=== PATIENT | female | born 1995 | race Caucasian/White ===

== ENCOUNTER 2016-05-13 06:22 | Emergency (ER) | payer MEDICAID, OTHER ==
[2016-05-13] MEDS ORDERED: METHYLPREDNISOLONE INJ 125 MG/2 ML SDV IV ONE (06:24)
[2016-05-13] MEDS ORDERED: LORAZEPAM INJ 2 MG/1 ML VIAL IV ONE (06:24)
[2016-05-13] MEDS ORDERED: DIPHENHYDRAMINE HCL 50 MG/ML VIAL IV ONE (06:24)
[2016-05-13] MEDS ORDERED: FAMOTIDINE INJ/PF 20 MG/2 ML SDV IV ONE (06:24)
--- NOTE | 2016-05-13 06:29 | ER Document Report ---
ED General - General Stated Complaint: POSSIBLE ALLERGIC REACTION Mode of Arrival: Wheelchair Information source: Patient, Relative Notes: 21-year-old female history of tree nut allergies presents after eating a pecan. Pt notes sob, brought in by relative. pt notes she took her epi pen prior to arrival TRAVEL OUTSIDE OF THE [place] IN LAST 30 DAYS: No - HPI Onset: Just prior to arrival Onset/Duration: Sudden Quality of pain: No pain Severity: Mild Pain Level: Denies Associated symptoms: Other Exacerbated by: Denies Relieved by: Denies Similar symptoms previously: No Recently seen / treated by doctor: No - Related Data Allergies/Adverse Reactions: tree nut Allergy (Verified 03/29/16 11:44) Past Medical History - Social History Smoking Status: Never Smoker Cigarette use (# per day): No Chew tobacco use (# tins/day): No Smoking Education Provided: No Family History: None Pulmonary Medical History: Reports: Hx Asthma - Immunizations Hx Diphtheria, Pertussis, Tetanus Vaccination: Yes Review of Systems - Review of Systems Notes: REVIEW OF SYSTEMS: CONSTITUTIONAL : Denies fever, chills, or sweats. Denies recent illness. EENT: Denies eye, ear, throat, or mouth pain or symptoms. Denies nasal or sinus congestion or discharge. Denies throat, tongue, or mouth swelling or difficulty swallowing. CARDIOVASCULAR: Denies chest pain. Denies palpitations or racing or irregular heart beat. Denies ankle edema. RESPIRATORY: Admits shortness of breath GASTROINTESTINAL: Denies abdominal pain or distention. Denies nausea, vomiting , or diarrhea. Denies blood in vomitus, stools, or per rectum. Denies black, tarry stools. Denies constipation. GENITOURINARY: Denies difficulty urinating, painful urination, burning, frequency, blood in urine, or discharge. FEMALE GENITOURINARY: Denies vaginal bleeding, heavy or abnormal periods, irregular periods. Denies vaginal discharge or odor. MUSCULOSKELETAL: Denies back or neck pain or stiffness. Denies joint pain or swelling. SKIN: Denies rash, lesions or sores. HEMATOLOGIC : Denies easy bruising or bleeding. LYMPHATIC: Denies swollen, enlarged glands. NEUROLOGICAL: Denies confusion or altered mental status. Denies passing out or loss of consciousness. Denies dizziness or lightheadedness. Denies headache. Denies weakness or paralysis or loss of use of either side. Denies problems with gait or speech. Denies sensory loss, numbness, or tingling. Denies seizures. PSYCHIATRIC: Denies anxiety or stress. Denies depression, suicidal ideation, or homicidal ideation. ALL OTHER SYSTEMS REVIEWED AND NEGATIVE. Dictation was performed using [employer] voice recognition software PHYSICAL EXAMINATION: GENERAL: Well-appearing, well-nourished and in no acute distress. HEAD: Atraumatic, normocephalic. EYES: Pupils equal round and reactive to light, extraocular movements intact, conjunctiva are normal. ENT: Nares patent, oropharynx clear without exudates. Moist mucous membranes. NECK: Normal range of motion, supple without lymphadenopathy LUNGS: Breath sounds clear to auscultation bilaterally and equal. No wheezes rales or rhonchi. HEART: Regular rate and rhythm without murmurs ABDOMEN: Soft, nontender, nondistended abdomen. No guarding, no rebound. No masses appreciated. Female : deferred Musculoskeletal: Normal range of motion, no pitting or edema. No cyanosis. NEUROLOGICAL: Cranial nerves grossly intact. Normal speech, normal gait. Normal sensory, motor exams PSYCH: Normal mood, normal affect. SKIN: Warm, Dry, normal turgor, no rashes or lesions noted. Physical Exam - Vital signs Vitals: Pulse Ox 94 05/13/16 06:25 Course - Re-evaluation Re-evalutation: 05/13/16 06:28 Tongue is not swollen airways patent, patient will be treated with Benadryl and Pepcid and Solu-Medrol. It appears patient did take her own EpiPen at home, I will watch her for rebound symptoms 05/13/16 07:51 In fact it appears never gave her the EpiPen injection, patient was mistaken, he confirms EpiPen is intact and in her pocket. Patient satting 100% she is in no distress I will discharge her home at this time After performing a Medical Screening Examination, I estimate there is LOW risk for AIRWAY COMPROMISE, ANAPHYLAXIS, CELLULITIS, EPIGLOTTIS, or NECROTIZING FASCIITIS, thus I consider the discharge disposition reasonable. Also, there is no evidence or peritonitis, sepsis, or toxicity. The patient and I have discussed the diagnosis and risks, and we agree with discharging home with close follow-up with the understanding that symptoms and presentations can change. We also discussed returning to the Emergency Department immediately if new or worsening symptoms occur. We have discussed the symptoms which are most concerning (e.g., difficulty breathing or swallowing, fever, changing or worsening pain) that necessitate immediate return. - Vital Signs Vital signs: Temp Pulse Resp BP Pulse Ox 98.1 F 19 91/48 L 100 05/13/16 07:40 05/13/16 07:40 05/13/16 07:40 05/13/16 07:20 Discharge - Discharge Clinical Impression: Acute allergic reaction Qualifiers: Encounter type: initial encounter Qualified Code(s): T78.40XA - Allergy, unspecified, initial encounter Condition: Stable Disposition: HOME, SELF-CARE Instructions: Acute Allergic Reaction ([facility]) Additional Instructions: Follow up with your physician tomorrow for further care or return to the ED IMMEDIATELY if symptoms worsen or new concerns occur Prescriptions: Diphenhydramine HCl [Benadryl 50 mg Capsule] 1 cap PO Q6 PRN #20 capsule PRN Reason: Famotidine [Pepcid 20 mg Tablet] 20 mg PO DAILY #5 tablet Prednisone 60 mg PO DAILY 5 Days
[2016-05-13 08:08] VITALS: BP 94/50
== END 2016-05-13 08:30 | disposition home or self-care (01) ==
LOC: ER 06:22
DX: T78.1XXA Other adverse food reactions, not elsewhere classified, initial encounter (principal); R06.02 Shortness of breath; X58.XXXA Exposure to other specified factors, initial encounter; J45.909 Unspecified asthma, uncomplicated
CPT/HCPCS: 99283; 96374; 96375; J1200; J2930; J2060; S0028

== ENCOUNTER 2016-09-13 01:05 | Emergency (ER) | payer OTHER ==
[2016-09-13 03:02] LABS: ABSOLUTE EOSINOPHILS # (AUTO) 0.1 10^3/uL (0.0-0.6); ABSOLUTE LYMPHOCYTES (AUTO) 2.9 10^3/uL (0.5-4.7); ABSOLUTE MONOCYTES (AUTO) 0.7 10^3/uL (0.1-1.4); ABSOLUTE NEUT (AUTO) 3.8 10^3/uL (1.7-8.2); BASOPHILS % (AUTO) 0.3 % (0-2); EOSINOPHILS % (AUTO) 1.9 % (0-6); HEMATOCRIT 38.4 % (36.0-47.0); HEMOGLOBIN 12.7 g/dL (12.0-15.5); HGB HCT DIFFERENCE -0.3; LYMPHOCYTES % (AUTO) 38.2 % (13-45); MEAN CORPUSCULAR HEMOGLOBIN 31.7 pg (27.0-33.4); MEAN CORPUSCULAR VOLUME 96 fl (80-97); MONOCYTES % (AUTO) 9.5 % (3-13); RED CELL DISTRIBUTION WIDTH 15.1 % (11.5-14.0); SEGMENTED NEUTROPHILS % (AUTO) 50.1 % (42-78); WHITE BLOOD COUNT 7.6 10^3/uL (4.0-10.5)
[2016-09-13 03:04] LABS: ALANINE AMINOTRANSFERASE 34 U/L (9-52); ALBUMIN 4.8 g/dL (3.5-5.0); ALKALINE PHOSPHATASE 65 U/L (38-126); ANION GAP 13 (5-19); ASPARTATE AMINO TRANSFERASE 30 U/L (14-36); BILIRUBIN,DIRECT 0.3 mg/dL (0.0-0.4); BILIRUBIN,TOTAL 0.4 mg/dL (0.2-1.3); BLOOD UREA NITROGEN 13 mg/dL (7-20); CALCIUM 9.9 mg/dL (8.4-10.2); CARBON DIOXIDE 25 mmol/L (22-30); CHLORIDE 104 mmol/L (98-107); CREATINE KINASE 127 U/L (30-135); CREATININE RESULT 0.63 mg/dL (0.52-1.25); GLUCOSE 78 mg/dL (75-110); POTASSIUM 3.9 mmol/L (3.6-5.0); SODIUM 142.3 mmol/L (137-145); TOTAL PROTEIN 8.3 g/dL (6.3-8.2)
[2016-09-13 03:19] LABS: CREATINE KINASE MB 0.73 ng/mL (<4.55)
[2016-09-13 03:29] LABS: TROPONIN I < 0.012 ng/mL
--- NOTE | 2016-09-13 05:50 | RADIOLOGY REPORT (SQ) ---
EXAM DESCRIPTION: CT HEAD WITHOUT COMPLETED DATE/TIME: 09/13/2016 5:31 am REASON FOR STUDY: syncope, falls, ovarian CA COMPARISON: None. TECHNIQUE: Axial images acquired through the brain without intravenous contrast. Images reviewed wi th bone, brain and subdural windows. Images stored on PACS. All CT scanners at this facility use dose modulation, iterative reconstruction, and/or weight based d osing when appropriate to reduce radiation dose to as low as reasonably achievable (ALARA). [facility]: Dose Right [facility]: CareDose [facility]: Dose Right [facility]: Teradose 4D [facility]: HeyBubble RADIATION DOSE: 64.61 mGy. LIMITATIONS: None. FINDINGS: VENTRICLES: Normal size and contour. CEREBRUM: No masses. No hemorrhage. No midline shift. Normal kennedy/white matter differentiation. N o evidence for acute infarction. CEREBELLUM: No masses. No hemorrhage. No alteration of density. No evidence for acute infarction. EXTRAAXIAL SPACES: No fluid collections. No masses. ORBITS AND GLOBE: No intra- or extraconal masses. Normal contour of globe without masses. CALVARIUM: No fracture. PARANASAL SINUSES: No fluid or mucosal thickening. SOFT TISSUES: No mass or hematoma. OTHER: No other significant finding. IMPRESSION: NORMAL BRAIN CT WITHOUT CONTRAST. TECHNICAL DOCUMENTATION: JOB ID: [id number] Quality ID # [id number]: Final reports with documentation of one or more dose reduction techniques (e.g., Au tomated exposure control, adjustment of the mA and/or kV according to patient size, use of iterative reconstruction technique) 2010 [email or web address] All Rights Reserved
[2016-09-13 06:30] LABS: APPEARANCE,URINE CLEAR; BILIRUBIN,URINE NEGATIVE (NEGATIVE); GLUCOSE, URINE NEGATIVE (NEGATIVE); KETONES,URINE NEGATIVE (NEGATIVE); LEUKOCYTE ESTERASE,URINE TRACE (NEGATIVE); NITRITE,URINE NEGATIVE (NEGATIVE); PROTEIN,URINE NEGATIVE (NEGATIVE); URINE SPECIFIC GRAVITY 1.015; UROBILINOGEN,URINE NEGATIVE mg/dL (<2.0)
[2016-09-13] MEDS ORDERED: ONDANSETRON 4 MG TAB.RAPDIS PO ONE (06:31)
[2016-09-13] MEDS ORDERED: PROCHLORPERAZINE MALEATE 10 MG TABLET PO ONE (06:31)
[2016-09-13 07:05] VITALS: BP 86/59
--- NOTE | 2016-09-13 07:15 | ER Document Report ---
ED General - General Chief Complaint: Syncope Stated Complaint: DIZZY Time Seen by Provider: 09/13/16 06:24 TRAVEL OUTSIDE OF THE [place] IN LAST 30 DAYS: No - HPI Patient complains to provider of: Headache dizziness passing out Notes: Patient is coming in for evaluation of headaches passing out and dizziness. Patient states multiple syncopal episodes or passing out episodes and the weeks prior to this visit. Patient states she has had numerous workup [facility] involving "multiple test" with no results to give a definitive answer to her symptoms. Patient states today symptoms are the same dizziness is also the same. Patient also states headache at the same. Patient upon my evaluation sleeping easily arousable asking me to speak softly. - Related Data Allergies/Adverse Reactions: tree nut Allergy (Verified 03/29/16 11:44) Past Medical History - Social History Smoking Status: Unknown if Ever Smoked Family History: None Pulmonary Medical History: Reports: Hx Asthma Renal/ Medical History: Denies: Hx Peritoneal Dialysis - Immunizations Hx Diphtheria, Pertussis, Tetanus Vaccination: Yes Review of Systems - Review of Systems Constitutional: No symptoms reported EENT: No symptoms reported Cardiovascular: Dizziness, Other - passout headache Respiratory: No symptoms reported Gastrointestinal: No symptoms reported Genitourinary: No symptoms reported Female Genitourinary: No symptoms reported Musculoskeletal: No symptoms reported Skin: No symptoms reported Hematologic/Lymphatic: No symptoms reported Neurological/Psychological: No symptoms reported -: Yes All other systems reviewed and negative Physical Exam - Vital signs Vitals: Temp Pulse BP Pulse Ox 98.6 F 66 114/62 100 09/13/16 01:13 09/13/16 01:13 09/13/16 01:13 09/13/16 01:13 Interpretation: Normal - General General appearance: Appears well, Alert - HEENT Head: Normocephalic, Atraumatic Eyes: Normal Pupils: PERRL - Respiratory Respiratory status: No respiratory distress Chest status: Nontender Breath sounds: Normal Chest palpation: Normal - Cardiovascular Rhythm: Regular Heart sounds: Normal auscultation Murmur: No - Abdominal Inspection: Normal Distension: No distension Bowel sounds: Normal Tenderness: Nontender Organomegaly: No organomegaly - Back Back: Normal, Nontender - Extremities General upper extremity: Normal inspection, Nontender, Normal color, Normal ROM , Normal temperature General lower extremity: Normal inspection, Nontender, Normal color, Normal ROM , Normal temperature, Normal weight bearing. No: Bethany's sign - Neurological Neuro grossly intact: Yes Cognition: Normal Orientation: AAOx4 Agustin Coma Scale Eye Opening: Spontaneous [place] Coma Scale Verbal: Oriented [place] Coma Scale Motor: Obeys Commands [place] Coma Scale Total: 15 Speech: Normal Motor strength normal: LUE, RUE, LLE, RLE Sensory: Normal - Psychological Associated symptoms: Normal affect, Normal mood - Skin Skin Temperature: Warm Skin Moisture: Dry Skin Color: Normal Course - Re-evaluation Re-evalutation: 09/13/16 13:40 Patient coming in for evaluation headache passing out and dizziness. Patient lab work did not reveal any critical pathology. Patient neurologically intact with no significant pathology seen on physical examination. Patient will be discharged home follow-up with cardiology neurology and PCP. Patient will be given Compazine and Zofran for her headaches. 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 The patient is neurologically intact. Given the extremely low risk of these diagnoses further testing and evaluation for these possibilities does not appear to be indicated at this time. The patient has been instructed to return if the symptoms worsen or change in any way.. - Vital Signs Vital signs: Temp Pulse Resp BP Pulse Ox 98.6 F 81 86/59 L 100 09/13/16 01:13 09/13/16 07:04 09/13/16 07:04 09/13/16 01:13 - Laboratory Result Diagrams: 09/13/16 02:33 09/13/16 02:33 Laboratory results interpreted by me: 09/13/16 09/13/16 09/13/16 02:33 02:33 02:33 RDW 15.1 H Total Protein 8.3 H Ur Leukocyte Esterase TRACE H Discharge - Discharge Clinical Impression: Blackout spell Headache Qualifiers: Headache type: unspecified Headache chronicity pattern: unspecified pattern Intractability: not intractable Qualified Code(s): R51 - Headache Condition: Good Disposition: HOME, SELF-CARE Instructions: Dizziness ([facility]), Headache ([facility]), Family Physicians / Practices Additional Instructions: Your laboratory studies today do not show any critical etiology for your symptoms. I would highly recommend that you continue to drink plenty water to stay hydrated. you may take the 2 medications prescribed for your headaches. Highly recommend she follow-up with her family physician neurologist and buncher machine. These physicians will be listed for you. Prescriptions: Ondansetron [Zofran Odt 4 mg Tablet] 4 mg PO Q6 #20 tab.rapdis Prochlorperazine Maleate [Compazine] 10 mg PO Q6 #20 tablet Forms: Return to Work Referrals: MARGE WSET MD [ACTIVE STAFF] - Follow up as needed NERISSA HAMMONDS MD [ACTIVE STAFF] - Follow up as needed
--- NOTE | 2016-09-13 14:28 | EKG REPORT ---
SEVERITY:- OTHERWISE NORMAL ECG - SINUS ARRHYTHMIA, RATE 61-85 : Confirmed by: Yanet Sahu 13-Sep-2016 14:27:57
--- NOTE | 2016-09-13 14:28 | EKG REPORT ---
SEVERITY:- OTHERWISE NORMAL ECG - SINUS ARRHYTHMIA, RATE 44-60 : Confirmed by: Yanet Sahu 13-Sep-2016 14:27:52
== END 2016-09-13 07:41 | disposition home or self-care (01) ==
LOC: ER 01:05
DX: R55 Syncope and collapse (principal); R51 Headache; J45.909 Unspecified asthma, uncomplicated; Z91.018 Allergy to other foods
CPT/HCPCS: 93005; 99284; 36415; 82553; 82550; 85025; 81025; 80053; 81001; 84484; 70450; 93010; S0119; S0183

== ENCOUNTER 2017-08-20 18:37 | Emergency (ER) | payer OTHER ==
--- NOTE | 2017-08-20 20:42 | ER Document Report ---
HPI - HPI Pain Level: 0 Notes: Patient is a 22-year-old female with a history of allergic reactions who presents to the ED complaining of lip tingling and swelling since trying a new lipstick today. Patient states that she took lipstick off and has been feeling much better as well as with the aid of Benadryl. Patient states that she left work early so she needs a work note. Patient states that she does not need any other medicines at this time. She is eating and drinking without difficulties. She is urinating normally and having normal bowel movements. She has not had any trouble breathing. Denies any headache, fever, head injury, neck pain, changes in vision/speech/mentation/hearing, URI, sore throat, chest pain, palpitations, syncope, cough, shortness of breath, wheeze, dyspnea, abdominal pain, nausea/vomiting/diarrhea, urinary retention, dysuria, hematuria, loss of control of bowel or bladder, muscle paralysis/weakness, or rash. - ROS Systems Reviewed and Negative: Yes All other systems reviewed and negative Past Medical History - Social History Smoking Status: Current Every Day Smoker Chew tobacco use (# tins/day): No Family History: None Patient has suicidal ideation: No Patient has homicidal ideation: No Pulmonary Medical History: Reports: Hx Asthma Renal/ Medical History: Denies: Hx Peritoneal Dialysis - Immunizations Hx Diphtheria, Pertussis, Tetanus Vaccination: Yes Vertical Provider Document - CONSTITUTIONAL Agree With Documented VS: Yes Notes: PHYSICAL EXAMINATION: GENERAL: Well-appearing, well-nourished and in no acute distress. A&Ox4. Answers questions appropriately. Moves comfortably w/o notable distress HEAD: Atraumatic, normocephalic. EYES: Pupils equal round and reactive to light, extraocular movements intact, sclera anicteric, conjunctiva are normal. ENT: EAC clear b/l. TM's intact b/l without erythema, fluid, or perforation. Nares patent and without discharge. oropharynx w/o erythema without exudates. No tonsilar hypertrophy without erythema or exudate. No palatine shift. Uvula midline. No tongue protrusion. No drooling, hoarseness, or airway compromise. Moist mucous membranes. No sinus tenderness. No angioedema. NECK: Normal range of motion, supple without lymphadenopathy. No rigidity/ meningismus. LUNGS: Breath sounds clear to auscultation bilaterally and equal. No wheezes rales or rhonchi. No retractions HEART: Regular rate and rhythm without murmurs, rubs, gallops. NEUROLOGICAL: Normal speech, normal gait. Normal sensory, motor exams PSYCH: Normal mood, normal affect. SKIN: Warm, Dry, normal turgor, no rashes or lesions noted. - INFECTION CONTROL TRAVEL OUTSIDE OF THE [place] IN LAST 30 DAYS: No Course - Re-evaluation Re-evalutation: 08/20/17 20:40 Patient is an afebrile, well-hydrated, 22-year-old female who presents to the ED with a worried well visit for previous allergic reaction that has since resolved. Vitals are acceptable. PE is otherwise unremarkable. Patient is tolerating p.o. without difficulties. She has no significant tachycardia, tachypnea, or hypoxia. No labs or imaging warranted at this time based on H&P. Low suspicion for any meningitis, sepsis, peritonsillar/pharyngeal abscess, respiratory/airway compromise, Tomas's, angioedema, or other emergent systemic condition at this time. Patient is aware this condition can change from initial presentation and she needs to monitor symptoms closely. I will send her home with a steroid tapering doses precautionary if symptoms should worsen after she leaves from here. Conservative measures otherwise for symptoms. Recheck with your PCM in 2-3 days. Return to the ED with any worsening/ concerning symptoms otherwise as reviewed in discharge. Patient is in agreement. Discharge - Discharge Clinical Impression: Worried well Allergic reaction Qualifiers: Encounter type: initial encounter Qualified Code(s): T78.40XA - Allergy, unspecified, initial encounter Condition: Stable Disposition: HOME, SELF-CARE Additional Instructions: Rest, Ice Benadryl/Pepcid as needed Avoid allergen triggers F/u with your PCP in 2-3 days for a recheck Consider consult(s) with an caramel maker for ongoing/worsening symptoms Return to the ED with any worsening symptoms and/or development of fever, headache, changes in behavior/mentation/vision/speech, chest pain, palpitations , syncope, shortness of breath, trouble breathing, abdominal pain, n/v/d, blood in stool/urine, loss of control of bowel/bladder, urinary retention, muscle weakness/paralysis, saddle anesthesia, numbness/tingling, or other worsening symptoms that are concerning to you. Prescriptions: Prednisone [Deltasone 10 mg Tablet] 1 tab PO ASDIR PRN #18 tablet PRN Reason: Forms: Return to Work Referrals: EARNEST LYNN MD [ACTIVE STAFF] - Follow up as needed
== END 2017-08-20 20:52 | disposition home or self-care (01) ==
LOC: ER 18:37
DX: T78.40XA Allergy, unspecified, initial encounter (principal); R20.0 Anesthesia of skin; R22.0 Localized swelling, mass and lump, head; F17.200 Nicotine dependence, unspecified, uncomplicated
CPT/HCPCS: 99283

== ENCOUNTER 2018-06-21 14:17 | Emergency (ER) | payer SELFPAY ==
--- NOTE | 2018-06-21 15:59 | ER Document Report ---
ED Medical Screen (RME) - General Chief Complaint: Vag Bleeding, +preg <12wks Stated Complaint: NAUSEA Time Seen by Provider: 06/21/18 15:58 TRAVEL OUTSIDE OF THE [place] IN LAST 30 DAYS: No - HPI Notes: 06/21/18 15:58 Patient complains of sudden onset of lower abdominal cramping associated with vaginal bleed which started while she was at work this morning. She is starting weeks . She also complains of nausea and vomiting. - Related Data Allergies/Adverse Reactions: mushroom Allergy (Verified 06/21/18 15:49) Anaphylaxis tree nut Allergy (Verified 06/21/18 14:19) diphenhydramine [From Benadryl] Adverse Reaction (Verified 06/21/18 15:49) severe itching peach Adverse Reaction (Verified 06/21/18 15:49) seafood Allergy (Uncoded 06/21/18 15:49) Anaphylaxis Past Medical History - General Last Menstrual Period: unknown - Social History Chew tobacco use (# tins/day): No Frequency of alcohol use: None Drug Abuse: None Pulmonary Medical History: Reports: Hx Asthma Renal/ Medical History: Denies: Hx Peritoneal Dialysis Psychiatric Medical History: Reports: Hx Depression - anxiety Past Surgical History: Reports: Hx Oral Surgery - wisdom - Immunizations Hx Diphtheria, Pertussis, Tetanus Vaccination: Yes Physical Exam - Vital signs Vitals: Temp Pulse Resp BP Pulse Ox 98.4 F 76 19 111/51 L 100 06/21/18 14:43 06/21/18 14:43 06/21/18 14:43 06/21/18 14:43 06/21/18 14:43 Course - Vital Signs Vital signs: Temp Pulse Resp BP Pulse Ox 98.4 F 76 19 111/51 L 100 06/21/18 14:43 06/21/18 14:43 06/21/18 14:43 06/21/18 14:43 06/21/18 14:43
[2018-06-21] MEDS ORDERED: NORMAL SALINE 1000 ML 1,000 ML IV ONE ×2 (16:01→17:47)
[2018-06-21 16:32] LABS: APPEARANCE,URINE CLEAR; BILIRUBIN,URINE NEGATIVE (NEGATIVE); COLOR,URINE YELLOW; GLUCOSE, URINE NEGATIVE (NEGATIVE); KETONES,URINE TRACE mg/dL (NEGATIVE); LEUKOCYTE ESTERASE,URINE NEGATIVE (NEGATIVE); NITRITE,URINE NEGATIVE (NEGATIVE); PROTEIN,URINE NEGATIVE (NEGATIVE); URINE SPECIFIC GRAVITY 1.016; UROBILINOGEN,URINE NEGATIVE mg/dL (<2.0)
[2018-06-21 16:57] LABS: ABSOLUTE LYMPHOCYTES (AUTO) 1.2 10^3/uL (0.5-4.7); ABSOLUTE MONOCYTES (AUTO) 0.4 10^3/uL (0.1-1.4); ABSOLUTE NEUT (AUTO) 4.7 10^3/uL (1.7-8.2); BASOPHILS % (AUTO) 0.3 % (0-2); EOSINOPHILS % (AUTO) 0.6 % (0-6); HEMATOCRIT 36.7 % (36.0-47.0); LYMPHOCYTES % (AUTO) 18.5 % (13-45); MEAN CORPUSCULAR HEMOGLOBIN 33.9 pg (27.0-33.4); MEAN CORPUSCULAR HGB CONC 35.5 g/dL (32.0-36.0); MEAN CORPUSCULAR VOLUME 96 fl (80-97); MONOCYTES % (AUTO) 6.2 % (3-13); PLATELET COUNT 146 10^3/uL (150-450); RED BLOOD COUNT 3.84 10^6/uL (3.72-5.28); RED CELL DISTRIBUTION WIDTH 13.5 % (11.5-14.0); SEGMENTED NEUTROPHILS % (AUTO) 74.4 % (42-78); TOTAL CELLS COUNTED % (AUTO) 100 %; WHITE BLOOD COUNT 6.3 10^3/uL (4.0-10.5)
[2018-06-21 17:12] LABS: ALANINE AMINOTRANSFERASE 23 U/L (9-52); ALKALINE PHOSPHATASE 58 U/L (38-126); ANION GAP 7 (5-19); ASPARTATE AMINO TRANSFERASE 24 U/L (14-36); BILIRUBIN,DIRECT 0.1 mg/dL (0.0-0.4); BILIRUBIN,TOTAL 0.4 mg/dL (0.2-1.3); BLOOD UREA NITROGEN 6 mg/dL (7-20); CALCIUM 9.3 mg/dL (8.4-10.2); CARBON DIOXIDE 24 mmol/L (22-30); CHLORIDE 103 mmol/L (98-107); GLUCOSE 78 mg/dL (75-110); POTASSIUM 3.6 mmol/L (3.6-5.0); SODIUM 134.2 mmol/L (137-145)
--- NOTE | 2018-06-21 17:53 | ER Document Report ---
ED General - General Chief Complaint: Vag Bleeding, +preg <12wks Stated Complaint: NAUSEA Time Seen by Provider: 06/21/18 15:58 TRAVEL OUTSIDE OF THE [place] IN LAST 30 DAYS: No - HPI Notes: Patient is a approximately 13 weeks with 3 previous miscarriages who presents to the emergency department complaining of vaginal spotting that began today. Patient states that she has had nausea, vomiting, and some loose stool over the last several days as well. Patient states that she has been eati ng and drinking, but does have a decreased p.o. intake because of the nausea vomiting. She is urinating normally and having normal bowel movements. No other vaginal discharge or odor. She has no concern of STD or STI. No other concerns or complaints. Denies any headache, fever, neck pain, URI, sore throat, chest pain, palpitations, syncope, cough, shortness of breath, wheeze, dyspnea, abdominal pain, urinary retention, dysuria, hematuria, back pain, or rash. - Related Data Allergies/Adverse Reactions: mushroom Allergy (Verified 06/21/18 15:49) Anaphylaxis tree nut Allergy (Verified 06/21/18 14:19) diphenhydramine [From Benadryl] Adverse Reaction (Verified 06/21/18 15:49) severe itching peach Adverse Reaction (Verified 06/21/18 15:49) seafood Allergy (Uncoded 06/21/18 15:49) Anaphylaxis Past Medical History - General Last Menstrual Period: unknown - Social History Smoking Status: Never Smoker Chew tobacco use (# tins/day): No Frequency of alcohol use: None Drug Abuse: None Family History: None Patient has suicidal ideation: No Patient has homicidal ideation: No Pulmonary Medical History: Reports: Hx Asthma Renal/ Medical History: Denies: Hx Peritoneal Dialysis Psychiatric Medical History: Reports: Hx Depression - anxiety Past Surgical History: Reports: Hx Oral Surgery - wisdom - Immunizations Hx Diphtheria, Pertussis, Tetanus Vaccination: Yes Review of Systems - Review of Systems -: Yes All other systems reviewed and negative Physical Exam - Vital signs Vitals: Temp Pulse Resp BP Pulse Ox 98.4 F 76 19 111/51 L 100 06/21/18 14:43 06/21/18 14:43 06/21/18 14:43 06/21/18 14:43 06/21/18 14:43 - Notes Notes: PHYSICAL EXAMINATION: GENERAL: Well-appearing, well-nourished and in no acute distress. LUNGS: Breath sounds clear to auscultation bilaterally and equal. No wheezes rales or rhonchi. HEART: Regular rate and rhythm without murmurs, rubs, gallops. ABDOMEN: Soft, nontender, nondistended abdomen. No guarding, no rebound. No masses appreciated. Normal bowel sounds present. No CVA tenderness bilaterally. : deferred Musculoskeletal: FROM to passive/active. Strength 5+/5. Extremities: No cyanosis, clubbing, or edema b/l. Peripheral pulses 2+. Capillary refill less than 3 seconds. NEUROLOGICAL: Normal speech, normal gait. PSYCH: Normal mood, normal affect. SKIN: Warm, Dry, normal turgor, no rashes or lesions noted. Course - Re-evaluation Re-evalutation: 06/21/18 20:14 Patient is an afebrile, well-hydrated, 33-year-old female who presents to the ED with bleeding in early and intrauterine . She may also have a viral GI illness. Vitals are acceptable without any significant tachycardia, tachypnea, or hypoxia. PE is otherwise unremarkable. Abd soft and non-tender. Labs unremarkable. TVUS shows evidence of IUP at 13wks 3 days. No hemorrhage noted. UA unremarkable. Patient is nontoxic-appearing is tolerating p.o. without any difficulties. No other labs or imaging warranted at this time based on H&P. Low suspicion/risk for acute appendicitis, bowel obstruction, acute cholecystitis, acute cholangitis, perforated diverticulitis, incarcerated hernia, pancreatitis, perforated ulcer, peritonitis, sepsis, pelvic inflammatory disease, ectopic , tubo-ovarian abscess, ovarian torsion, or other systemic emergent condition at this time. Patient is aware that her condition can change from initial presentation and she needs to monitor symptoms closely and seek medical attention if any acute changes. Rx for zofran. Conservative measures otherwise for symptoms. Recheck with your PCM/OBGYN in 2-3 days. Return to the ED with any worsening/concerning symptoms otherwise as reviewed in discharge. Patient is in agreement. - Vital Signs Vital signs: Temp Pulse Resp BP Pulse Ox 98.5 F 63 16 95/46 L 100 06/21/18 18:47 06/21/18 18:47 06/21/18 18:47 06/21/18 18:47 06/21/18 18:47 - Laboratory Result Diagrams: 06/21/18 16:40 06/21/18 16:40 Laboratory results interpreted by me: 06/21/18 06/21/18 06/21/18 16:15 16:40 16:40 MCH 33.9 H Plt Count 146 L Sodium 134.2 L BUN 6 L Creatinine 0.50 L Beta HCG, Quant 18169.00 H Urine Ketones TRACE H Discharge - Discharge Clinical Impression: Bleeding in early , Nausea vomiting and diarrhea Condition: Stable Disposition: HOME, SELF-CARE Instructions: Diarrhea, Nonspecific ([facility]), Antinausea Medication ([facility]) Additional Instructions: Maintain adequate fluid and food intake [place] diet ([facility] Bananas, rice, apples, toast, etc Zofran as needed tylenol if needed Monitor for any worsening symptoms Make sure you are staying hydrated enough to urinate and have normal BM's Recheck with your PCM/OBGYN in 2-3 days Consider consult with Gastroenterology for ongoing/worsening symptoms Return to the ED with any worsening symptoms and/or development of fever, headache, chest pain, palpitations, syncope, shortness of breath, trouble breathing, abdominal pain, n/v/d, blood in stool/urine, weakness, any worsening vaginal bleeding, or other worsening symptoms that are concerning to you. Prescriptions: Ondansetron [Zofran Odt 4 mg Tablet] 1 - 2 tab PO Q4H PRN #15 tab.rapdis PRN Reason: For Nausea/Vomiting Referrals: [facility] [Provider Group] - Follow up as needed
[2018-06-21] MEDS ORDERED: ONDANSETRON HCL INJ/PF 4 MG/2 ML SDV IV ONE (18:12)
--- NOTE | 2018-06-21 20:06 | RADIOLOGY REPORT (SQ) ---
EXAM DESCRIPTION: US TRANSVAGINAL COMPLETED DATE/TME: 06/21/2018 16:02 CLINICAL HISTORY: 23 years, Female, Vaginal Bleeding. Findings: Obstetric ultrasound HISTORY: Vaginal bleeding. FINDINGS: Uterus measures 15.0 x 10.[address] [place]-rump length measures 7.2 cm, corresponding to gestational age of 13 weeks and three days. heart rate is preserved at 160 bpm. Cervix measures 3.5 cm in length. No abnormal findings for perigestational hemorrhage noted. IMPRESSION: Single viable IUP of 13 weeks and three days.
[2018-06-21 20:39] VITALS: BP 98/50
== END 2018-06-21 20:42 | disposition home or self-care (01) ==
LOC: ER 14:17
DX: O20.9 Hemorrhage in early pregnancy, unspecified (principal); O26.891 Other specified pregnancy related conditions, first trimester; R19.7 Diarrhea, unspecified; O21.9 Vomiting of pregnancy, unspecified; O99.511 Diseases of the respiratory system complicating pregnancy, first trimester; J45.909 Unspecified asthma, uncomplicated; Z3A.13 13 weeks gestation of pregnancy; Z87.892 Personal history of anaphylaxis; Z91.018 Allergy to other foods; Z91.013 Allergy to seafood
CPT/HCPCS: 99284; 96361; 96374; 86900; 86901; 36415; 84702; 85025; 80053; 81001; 76817; 93976; J2405; J7030

== ENCOUNTER → 2018-07-27 | Outpatient (CLI) | payer MEDICAID ==
--- NOTE | 2018-07-27 15:40 | RADIOLOGY REPORT (SQ) ---
EXAM DESCRIPTION: U/S OB 14+ TRNABD 1GES W/O DOP COMPLETED DATE/TIME: 07/27/2018 3:01 pm REASON FOR STUDY: Z34.82 ENCOUNTER FOR SUPRVSN OF NORMAL , SECOND TRIMESTER Z34.82 ENCOUNT ER FOR SUPRVSN OF NORMAL , SECOND TRI 18 weeks 4 days by dates c COMPARISON: None. TECHNIQUE: Static and Dynamic grayscale imaging performed of gravid uterus using transabdominal appr oach. Additional selected color Doppler and spectral images recorded. All stored on PACS. LIMITATIONS: None. FINDINGS: FETUSES SEEN:1 EGA: 19 weeks 3 days Calculated using BPD,FL,HC,AC documented on images. No discrepancy with clinica l dates. ADIA: 12/18/2018 EFW: 285 g grams PERCENTILE: 72 LV P: 5.8 cm PLACENTA: Anterior grade 1 PRESENTATION: Cephalic. ANATOMY: HEART RATE: 147 beats per minute. FOUR CHAMBER HEART: Visualized. THREE VESSEL CORD: Yes. CORD INSERTION: Visualized. KIDNEYS AND BLADDER: Visualized. Appear normal. STOMACH: Visualized. Appears normal. SPINE: Normal as visualized. BRAIN AND LATERAL VENTRICLES: Visualized. Appear normal. OTHER: No other significant finding. MATERNAL ADNEXA: Maternal ovaries not visualized. CERVICAL LENGTH: 3.1 cm. Closed. OTHER: No other significant finding. IMPRESSION: LIVING INTRAUTERINE . ESTIMATED GESTATIONAL AGE 19 weeks 3 days NO VISUALIZED ANOMALIES. Trimester of : Second trimester - 13 weeks 1 day to 27 weeks 6 days. TECHNICAL DOCUMENTATION: JOB ID: [id number] [employer]- All Rights Reserved Reading location - IP/workstation name: [email or web address]
== END ==
LOC: RAD 14:11
PROVIDERS: ATTEND Midwife
DX: Z34.82 Encounter for supervision of other normal pregnancy, second trimester (principal)
CPT/HCPCS: 76805

== ENCOUNTER 2018-08-11 18:18 | Outpatient (CLI) | payer MEDICAID ==
[2018-08-11 20:35] LABS: BACTERIA (WET MOUNT) 3+ BACTERIA SEEN; EPITHELIALS (WET MOUNT) 3+ EPITHELIALS SEEN; RBCS (WET MOUNT) FEW RBCS SEEN; T.VAGINALIS (WET MOUNT) NO TRICHOMONAS SEEN; WBCS (WET MOUNT) FEW WBCS SEEN; YEAST (WET MOUNT) NO YEAST SEEN
[2018-08-11 20:43] LABS: AMORPHOUS SEDIMENT,URINE TRACE /HPF; APPEARANCE,URINE TURBID; BILIRUBIN,URINE NEGATIVE (NEGATIVE); COLOR,URINE YELLOW; GLUCOSE, URINE NEGATIVE (NEGATIVE); KETONES,URINE NEGATIVE (NEGATIVE); LEUKOCYTE ESTERASE,URINE NEGATIVE (NEGATIVE); NITRITE,URINE NEGATIVE (NEGATIVE); PROTEIN,URINE NEGATIVE (NEGATIVE); URINE SPECIFIC GRAVITY 1.026; UROBILINOGEN,URINE NEGATIVE mg/dL (<2.0)
[2018-08-11 20:51] LABS: URINE AMPHETAMINES SCREEN NEGATIVE; URINE BARBITURATES SCREEN NEGATIVE; URINE BENZODIAZEPINES SCREEN NEGATIVE; URINE COCAINE SCREEN NEGATIVE; URINE MARIJUANA (THC) SCREEN NEGATIVE; URINE METHADONE SCREEN NEGATIVE; URINE PHENCYCLIDINE SCREEN NEGATIVE
[2018-08-11 21:55] LABS: CHLAM PCR NOT DETECTED (NOT DETECT); GON PCR NOT DETECTED (NOT DETECT)
--- NOTE | 2018-08-11 22:11 | RADIOLOGY REPORT (SQ) ---
EXAM DESCRIPTION: RadLex: US LIMITED CLINICAL HISTORY: 23 years Female; cervical length, reports ctx, limited PNC EGA by dates 21 weeks 3 days TECHNIQUE: Transabdominal obstetrical ultrasound was performed. COMPARISON: 07/27/2018 FINDINGS: Number of fetuses: Single position: Breech measurements not performed HR: 152 BPM Anatomy: Not fully evaluated Amniotic fluid: Adequate, VANDANA 15 cm Cervix: 3.2 cm, closed Placenta: Anterior. No previa. IMPRESSION: 1. Cervix 3.2 cm, closed
== END 2018-08-11 22:25 | disposition home or self-care (01) ==
LOC: LC 18:18
PROVIDERS: ATTEND Student in an Organized Health Care Education/Training Program
DX: O47.02 False labor before 37 completed weeks of gestation, second trimester (principal); Z3A.21 21 weeks gestation of pregnancy
CPT/HCPCS: 87210; 81001; 80307; 87491; 87591; 76815; Q0114

== ENCOUNTER 2018-09-10 21:44 | Outpatient (CLI) | payer MEDICAID ==
[2018-09-10 22:28] LABS: BACTERIA (WET MOUNT) 3+ BACTERIA SEEN; EPITHELIALS (WET MOUNT) 4+ EPITHELIALS SEEN; RBCS (WET MOUNT) NO RBCS SEEN; T.VAGINALIS (WET MOUNT) NO TRICHOMONAS SEEN; WBCS (WET MOUNT) NO WBCS SEEN; YEAST (WET MOUNT) NO YEAST SEEN
[2018-09-10 22:41] LABS: URINE AMPHETAMINES SCREEN NEGATIVE; URINE BARBITURATES SCREEN NEGATIVE; URINE BENZODIAZEPINES SCREEN NEGATIVE; URINE COCAINE SCREEN NEGATIVE; URINE MARIJUANA (THC) SCREEN NEGATIVE; URINE METHADONE SCREEN NEGATIVE; URINE PHENCYCLIDINE SCREEN NEGATIVE
[2018-09-10 22:59] LABS: APPEARANCE,URINE CLEAR; BILIRUBIN,URINE NEGATIVE (NEGATIVE); COLOR,URINE YELLOW; GLUCOSE, URINE NEGATIVE (NEGATIVE); KETONES,URINE NEGATIVE (NEGATIVE); LEUKOCYTE ESTERASE,URINE NEGATIVE (NEGATIVE); NITRITE,URINE NEGATIVE (NEGATIVE); PROTEIN,URINE NEGATIVE (NEGATIVE); URINE SPECIFIC GRAVITY 1.021; UROBILINOGEN,URINE NEGATIVE mg/dL (<2.0)
[2018-09-10 23:55] LABS: CHLAM PCR NOT DETECTED (NOT DETECT); GON PCR NOT DETECTED (NOT DETECT)
== END 2018-09-10 23:37 | disposition home or self-care (01) ==
LOC: LC 21:44
PROVIDERS: ATTEND Obstetrics & Gynecology
PROC: 4A1HXCZ Monitoring of Products of Conception, Cardiac Rate, External Approach (ICD-10-PCS; principal; 2018-09-10)
DX: O26.92 Pregnancy related conditions, unspecified, second trimester (principal); Z3A.25 25 weeks gestation of pregnancy
CPT/HCPCS: 87210; 81001; 80307; 87491; 87591; 59899; Q0114

== ENCOUNTER 2018-10-06 11:38 | Emergency (ER) | payer MEDICAID ==
[2018-10-06] MEDS ORDERED: NORMAL SALINE 1000 ML 1,000 ML IV ONE (11:41)
[2018-10-06] MEDS ORDERED: METOCLOPRAMIDE HCL INJ/PF 10 MG/2 ML SDV IV ONE (11:41)
[2018-10-06 11:44] VITALS: BP 113/62
--- NOTE | 2018-10-06 11:55 | ER Document Report ---
HPI - HPI Patient complains to provider of: Weakness after smelling bug spray Time Seen by Provider: 10/06/18 11:40 Onset: Just prior to arrival Onset/Duration: Sudden Quality of pain: Cramping Severity: Moderate Pain Level: 3 Associated Symptoms: Nausea, Vomiting, Weakness, Other - Dizziness [place] cramping and 7 months Exacerbated by: Other - Vomiting causes pain to increase Relieved by: Denies Similar symptoms previously: Yes Recently seen / treated by doctor: Yes - ROS ROS below otherwise negative: Yes - EENT EENT: DENIES: Sore Throat, Ear Pain, Nasal Drainage-Clear, Nasal Drainage- Purulent, Congestion, Eye problems - NEURO Neurology: REPORTS: Dizzinesss / Vertigo - CARDIOVASCULAR Cardiovascular: DENIES: Chest pain - RESPIRATORY Respiratory: DENIES: Trouble Breathing, Coughing - GASTROINTESTINAL Gastrointestinal: REPORTS: Abdominal Pain, Nausea, Patient vomiting - REPRODUCTIVE Reproductive: REPORTS: : - MUSCULOSKELETAL Musculoskeletal: DENIES: Extremity pain, Back Pain, Neck Pain, Swelling - DERM Skin Color: Normal Skin Problems: None Past Medical History - General Information source: Patient - Social History Smoking Status: Never Smoker Cigarette use (# per day): No Smoking Education Provided: No Frequency of alcohol use: None Drug Abuse: None Lives with: Family Family History: None - Past Medical History Cardiac Medical History: Reports: None Pulmonary Medical History: Reports: Hx Asthma EENT Medical History: Reports: None Neurological Medical History: Reports: None Endocrine Medical History: Reports: None Renal/ Medical History: Reports: None Malignancy Medical History: Reports: None GI Medical History: Reports: None Musculoskeletal Medical History: Reports None Skin Medical History: Reports None Psychiatric Medical History: Reports: Hx Anxiety, Hx Depression - anxiety Traumatic Medical History: Reports: None Infectious Medical History: Reports: None Past Surgical History: Reports: Hx Oral Surgery - wisdom - Immunizations Hx Diphtheria, Pertussis, Tetanus Vaccination: Yes Vertical Provider Document - CONSTITUTIONAL Agree With Documented VS: Yes Exam Limitations: No Limitations General Appearance: Mild Distress - INFECTION CONTROL TRAVEL OUTSIDE OF THE [place] IN LAST 30 DAYS: No - HEENT HEENT: Atraumatic, Normal ENT Exam, Normocephalic, PERRLA - NECK Neck: Normal Inspection - RESPIRATORY Respiratory: Breath Sounds Normal, No Respiratory Distress, Chest Non-Tender - CARDIOVASCULAR Cardiovascular: Regular Rate, Regular Rhythm, No Murmur - GI/ABDOMEN Gastrointestinal: negative: Abdomen Soft - 7 months very , Abdomen Non-Tender - Cramping - MUSCULOSKELETAL/EXTREMETIES Musculoskeletal/Extremeties: [place] - NEURO Level of Consciousness: Awake, Alert, Appropriate Motor/Sensory: No Motor Deficit, No Sensory Deficit, Other - NIH 0 Deep Tendon Reflexes: 2+ Course - Re-evaluation Re-evalutation: 10/06/18 11:57 Patient was cleared from the ER and sent to labor and delivery for the abdominal pain nausea vomiting cramping at 7 months . - Vital Signs Vital signs: Temp Pulse Resp BP Pulse Ox 98.5 F 88 16 113/62 98 10/06/18 11:43 10/06/18 11:43 10/06/18 11:43 10/06/18 11:43 10/06/18 11:43 Discharge - Discharge Clinical Impression: Abdominal cramping affecting Condition: Stable Disposition: HOME, SELF-CARE Additional Instructions: You were evaluated for weakness after smelling bug spray in your home. You stated you became dizzy started having abdominal cramping. You are 7 months . You state you have been having abdominal cramping off and on and of called the PEDIATRIC ANESTHESIOLOGIST. You state you then became nauseated and have had several emesis. I will be sending you up to the labor and delivery to be evaluated for your abdominal cramping and dizziness in your . FOLLOW-UP CARE: If you have been referred to a physician for follow-up care, call the physicians office for an appointment as you were instructed or within the next two days. If you experience worsening or a significant change in your symptoms, notify the physician immediately or return to the Emergency Department at any time for re-evaluation. Referrals: THOMAS JAMESON CNM [Primary Care Provider] - Follow up as needed
--- NOTE | 2018-10-06 11:59 | ER Document Report ---
ED NIH Stroke Scale - NIH Stroke Scale *: 1. NIH scale should be completed with appropriate accompanying assessment tools. *: 2. The NIH should reflect what the patient is capable of doing and should not be coached by the clinician. 1a. Level of Consciousness: 0=Alert;keenly responsive -: 1=Drowsy -: 2=Obtunded -: 3=Coma/unresponsive or reflex to noxious stimuli. 1a. Responses: 0 1b. Orientation Questions: a. What month is it? -: b. How old are you? -: 0=Answers both questions correctly. -: 1=Answers one question correctly or patient is intubated or has orotracheal trauma. -: 2=Answers neither question correctly. 1b. Responses: 0 1c. Response to commands: a. Open and close eyes? -: b. Fur Dressing Supervisor and release hand? -: Credit is given despite weakness. Demonstration of task is permitted. Substitute command if hands cannot be used. -: 0=Performs both tasks correctly -: 1=Performs one task correctly -: 2=Performs neither task correctly 1c. Responses: 0 2. Gaze: Establish eye contact and instruct patient to "Follow my finger" -: 0=Normal -: 1=Partial gaze palsy. Gaze is abnormal in one or both eyes, but where forced deviation or total gaze paresis is not present. -: 2=Forced deviation or total gaze paresis. 2. Responses: 0 3. Visual Mares: Sees fingers in all four quadrants. -: 0=No visual loss. -: 1=Partial hemianopsia. -: 2=Complete hemianopsia. -: 3=Bilateral hemianopsia (including Cortical blindness) 3. Responses: 0 4. Facial Movement: Instruct patient to: -: a. Show me your teeth -: b. Raise your eyebrows -: c. Close your eyes -: d. Smile -: 0=Normal symmetrical movement -: 1=Minor paralysis (flattened nasolabial fold, asymmetry on smiling). -: 2=Partial paralysis (total or near total paralysis of lower face). -: 3=Complete paralysis of upper and lower face 4. Responses: 0 5. Motor functions (left arm): Alternate sides and extend each arm with palms down (90 degrees if sitting or 45 degrees for supine). -: 0=No drift;limb holds for full 10 seconds. -: 1=Drift; limb holds but drifts down before full 10 seconds, but does not hit bed. -: 2=Some effort against gravity; limb cannot get to or maintain position. -: 3=No effort against gravity; limb falls. -: 4=No movement. -: UN=Amputation, joint fusion, explain in comments. 5. Responses (left arm): 0 5. Motor Functions (right arm): Alternate sides and extend each arm with palms down (90 degrees if sitting or 45 degrees for supine). -: 0=No drift;limb holds for full 10 seconds. -: 1=Drift; limb holds but drifts down before full 10 seconds, but does not hit bed. -: 2=Some effort against gravity; limb cannot get to or maintain position. -: 3=No effort against gravity; limb falls. -: 4=No movement. -: UN=Amputation, joint fusion, explain in comments. 5. Responses (right arm): 0 6. Motor Functions (left leg): With patient lying supine, alternate sides and extend each leg (30 degrees always while supine). -: 0=No drift, leg holds position for full 5 seconds -: 1=Drift; leg falls before full 5 seconds but does not hit bed. -: 2=Some effort against gravity, leg falls to bed but some effort against gravity. -: 3=No effort against gravity, leg falls to bed immediately. -: 4=No movement. -: UN=Amputation, joint fusion; explain in comments. 6. Responses (left leg): 0 6. Motor Functions (right leg): With patient lying supine, alternate sides and extend each leg (30 degrees always while supine). -: 0=No drift, leg holds position for full 5 seconds -: 1=Drift; leg falls before full 5 seconds but does not hit bed. -: 2=Some effort against gravity, leg falls to bed but some effort against gravity. -: 3=No effort against gravity, leg falls to bed immediately. -: 4=No movement. -: UN=Amputation, joint fusion; explain in comments. 6. Responses (right leg): 0 7. Limb Ataxia: With eyes open instruct patient to: -: a. "Touch your finger to your nose". -: b. "Touch your heel to your celestin" -: 0=Absent -: 1=Present in one limb. -: 2=Present in two limbs. -: UN=Amputation or joint fusion; explain in comments. 7. Responses: 0 8. Sensory: Test sensation using pinprick or noxious stimuli. Test as many body parts as possible. -: 0=Normal;no sensory loss -: 1=Mile to moderate sensory loss (patient feels pin prick but is less sharp on affected side). -: 2=Severe or total sensory loss. 8. Responses: 0 9. Best Language: Instruct patient to: -: a. "Describe what you see in this picture." -: b. "Name the items in this picture." -: c. "Read these sentences." -: 0=No aphasia, normal -: 1=Mild to moderate aphasia. -: 2=Severe aphasia -: 3=[place]ute, global aphasia, no usable speech or auditory comprehension. 9. Responses: 0 10. Articulation, Dysarthia: Instruct patient to: -: "Read these words" or "Repeat these words" -: 0=Normal -: 1=Mild to moderate; patient may slur some words but can be understood without difficulty. -: 2=Severe; patients speech so slurred as to be unintelligible in the absence of dysphasia. -: UN=Intubated or other physical barrier, explain in comments. 10. Responses: 0 11. Extinction or inattention: 0=No abnormality -: 1= Visual, tactile, auditory, spatial, or personal inattention or extinction to bilateral simulation in one or the sensory modalities. -: 2=Profound brian-inattention or brian-inattention to more than one modality; does not recognize own hand. 11. Responses: 0 Total Score: 0
== END 2018-10-06 11:55 | disposition home or self-care (01) ==
LOC: ER 11:38
DX: O26.93 Pregnancy related conditions, unspecified, third trimester (principal); R53.1 Weakness; R11.2 Nausea with vomiting, unspecified; R42 Dizziness and giddiness; R10.84 Generalized abdominal pain
CPT/HCPCS: 99283

== ENCOUNTER 2018-10-06 12:12 | Outpatient (CLI) | payer MEDICAID ==
[2018-10-06] MEDS ORDERED: ONDANSETRON HCL INJ/PF 4 MG/2 ML SDV IV ONE (12:43)
[2018-10-06] MEDS ORDERED: RINGERS SOLUTION,LACTATED 300 ML IV ONE (12:43)
[2018-10-06 12:58] LABS: APPEARANCE,URINE SLIGHTLY-CLOUDY; BILIRUBIN,URINE NEGATIVE (NEGATIVE); GLUCOSE, URINE NEGATIVE (NEGATIVE); KETONES,URINE NEGATIVE (NEGATIVE); LEUKOCYTE ESTERASE,URINE NEGATIVE (NEGATIVE); NITRITE,URINE NEGATIVE (NEGATIVE); PROTEIN,URINE 30 mg/dL (NEGATIVE); URINE SPECIFIC GRAVITY 1.024
[2018-10-06 12:59] LABS: COLOR,URINE DARK YELLOW
[2018-10-06] MEDS ORDERED: ONDANSETRON HCL INJ/PF 4 MG/2 ML SDV ONE (13:00)
[2018-10-06 13:16] LABS: URINE AMPHETAMINES SCREEN NEGATIVE; URINE BARBITURATES SCREEN NEGATIVE; URINE BENZODIAZEPINES SCREEN NEGATIVE; URINE COCAINE SCREEN NEGATIVE; URINE MARIJUANA (THC) SCREEN NEGATIVE; URINE METHADONE SCREEN NEGATIVE; URINE PHENCYCLIDINE SCREEN NEGATIVE
[2018-10-06 14:30] LABS: ALANINE AMINOTRANSFERASE 15 U/L (9-52); ALKALINE PHOSPHATASE 79 U/L (38-126); ANION GAP 8 (5-19); ASPARTATE AMINO TRANSFERASE 12 U/L (14-36); BILIRUBIN,DIRECT 0.2 mg/dL (0.0-0.4); BILIRUBIN,TOTAL 0.3 mg/dL (0.2-1.3); BLOOD UREA NITROGEN 4 mg/dL (7-20); CALCIUM 8.3 mg/dL (8.4-10.2); CARBON DIOXIDE 23 mmol/L (22-30); CHLORIDE 106 mmol/L (98-107); GLUCOSE 85 mg/dL (75-110); POTASSIUM 3.3 mmol/L (3.6-5.0); SODIUM 136.8 mmol/L (137-145); TOTAL PROTEIN 5.3 g/dL (6.3-8.2)
[2018-10-06] MEDS ORDERED: PROMETHAZINE HCL INJ 25 MG/1 ML VIAL IV ONE (15:00)
[2018-10-06] MEDS ORDERED: POTASSIUM CHLORIDE 10 MEQ CAPSULE.ER PO ONE (15:00)
== END 2018-10-06 15:19 | disposition home or self-care (01) ==
LOC: LC 12:12
PROVIDERS: ATTEND Obstetrics & Gynecology
PROC: 4A1HXCZ Monitoring of Products of Conception, Cardiac Rate, External Approach (ICD-10-PCS; principal; 2018-10-06)
DX: O36.8120 Decreased fetal movements, second trimester, not applicable or unspecified (principal); Z3A.28 28 weeks gestation of pregnancy
CPT/HCPCS: 36415; 80053; 81001; 80307; 59025; J2550; J2405

== ENCOUNTER 2018-11-03 14:29 | Outpatient (CLI) | payer MEDICAID ==
[2018-11-03 15:07] LABS: APPEARANCE,URINE CLEAR; BILIRUBIN,URINE NEGATIVE (NEGATIVE); COLOR,URINE YELLOW; GLUCOSE, URINE NEGATIVE (NEGATIVE); KETONES,URINE NEGATIVE (NEGATIVE); LEUKOCYTE ESTERASE,URINE NEGATIVE (NEGATIVE); NITRITE,URINE NEGATIVE (NEGATIVE); PROTEIN,URINE NEGATIVE (NEGATIVE); URINE SPECIFIC GRAVITY 1.019
[2018-11-03 15:21] LABS: URINE AMPHETAMINES SCREEN NEGATIVE; URINE BENZODIAZEPINES SCREEN NEGATIVE; URINE METHADONE SCREEN NEGATIVE; URINE PHENCYCLIDINE SCREEN NEGATIVE
[2018-11-03 15:22] LABS: URINE COCAINE SCREEN NEGATIVE; URINE MARIJUANA (THC) SCREEN NEGATIVE
[2018-11-03 15:26] LABS: URINE BARBITURATES SCREEN NEGATIVE
== END 2018-11-03 15:43 | disposition home or self-care (01) ==
LOC: LC 14:29
PROVIDERS: ATTEND Obstetrics & Gynecology
PROC: 4A1HXCZ Monitoring of Products of Conception, Cardiac Rate, External Approach (ICD-10-PCS; principal; 2018-11-03)
DX: Z34.83 Encounter for supervision of other normal pregnancy, third trimester (principal)
CPT/HCPCS: 59025; 80307; 81001

== ENCOUNTER 2018-11-23 00:10 | Outpatient (CLI) | payer MEDICAID ==
[2018-11-23] MEDS ORDERED: HYDROXYZINE PAMOATE 50 MG CAPSULE ONE (00:44)
[2018-11-23] MEDS ORDERED: NALBUPHINE HCL INJ 10 MG/1 ML AMPULE INJ ONE (01:00)
[2018-11-23] MEDS ORDERED: HYDROXYZINE PAMOATE 50 MG CAPSULE PO ONE (01:00)
[2018-11-23 01:08] LABS: APPEARANCE,URINE CLEAR; BILIRUBIN,URINE NEGATIVE (NEGATIVE); COLOR,URINE AMBER; GLUCOSE, URINE NEGATIVE (NEGATIVE); KETONES,URINE NEGATIVE (NEGATIVE); LEUKOCYTE ESTERASE,URINE NEGATIVE (NEGATIVE); NITRITE,URINE NEGATIVE (NEGATIVE); PROTEIN,URINE 30 mg/dL (NEGATIVE); URINE SPECIFIC GRAVITY 1.027; UROBILINOGEN,URINE NEGATIVE mg/dL (<2.0)
[2018-11-23 01:28] LABS: URINE AMPHETAMINES SCREEN NEGATIVE; URINE BARBITURATES SCREEN NEGATIVE; URINE BENZODIAZEPINES SCREEN NEGATIVE; URINE COCAINE SCREEN NEGATIVE; URINE MARIJUANA (THC) SCREEN NEGATIVE; URINE METHADONE SCREEN NEGATIVE; URINE PHENCYCLIDINE SCREEN NEGATIVE
[2018-11-23] MEDS ORDERED: RINGERS SOLUTION,LACTATED 1,000 ML IV PRN (01:32)
[2018-11-23] MEDS ORDERED: RINGERS SOLUTION,LACTATED 1,000 ML IV ONE (02:00)
--- NOTE | 2018-11-23 04:51 | Non Stress Test Report ---
Non Stress Test Datetime Report Generated by CPN: 11/23/2018 04:51 DEMOGRAPHIC EGA NST: 35.5 MONITORING Monitor Explained: Monitor Explained; Test Explained; Patient Verbalized Understanding Time on Monitor: 11/23/2018 01:12 Time off Monitor: 11/23/2018 04:08 NST Duration: 176 NST INTERVENTIONS NST Interventions: None BABY A Movement : Present Contraction Frequency : 2-6 FHR Baseline : 130 Accelerations : 15X15 Decelerations : None Variability : Moderate 6-25bpm NST Review: Meets Criteria for Reactive NST NST Review and Verified By : E. Jilek RN NST Results: Reactive NST REPORT Report Trigger: Send Report
== END 2018-11-23 04:11 | disposition home or self-care (01) ==
LOC: LC 00:10
PROVIDERS: ATTEND Student in an Organized Health Care Education/Training Program
PROC: 4A1HXCZ Monitoring of Products of Conception, Cardiac Rate, External Approach (ICD-10-PCS; principal; 2018-11-23)
DX: Z34.93 Encounter for supervision of normal pregnancy, unspecified, third trimester (principal)
CPT/HCPCS: 81005; 80307; 84112; 59025; J3490

== ENCOUNTER 2018-11-27 15:09 | Outpatient (CLI) | payer MEDICAID ==
[2018-11-27 15:59] LABS: APPEARANCE,URINE SLIGHTLY-CLOUDY; BILIRUBIN,URINE NEGATIVE (NEGATIVE); COLOR,URINE AMBER; GLUCOSE, URINE NEGATIVE (NEGATIVE); KETONES,URINE TRACE mg/dL (NEGATIVE); LEUKOCYTE ESTERASE,URINE NEGATIVE (NEGATIVE); NITRITE,URINE NEGATIVE (NEGATIVE); PROTEIN,URINE 30 mg/dL (NEGATIVE); URINE SPECIFIC GRAVITY 1.027; UROBILINOGEN,URINE NEGATIVE mg/dL (<2.0)
[2018-11-27 16:06] LABS: URINE AMPHETAMINES SCREEN NEGATIVE; URINE BARBITURATES SCREEN NEGATIVE; URINE BENZODIAZEPINES SCREEN NEGATIVE; URINE COCAINE SCREEN NEGATIVE; URINE MARIJUANA (THC) SCREEN NEGATIVE; URINE METHADONE SCREEN NEGATIVE; URINE PHENCYCLIDINE SCREEN NEGATIVE
--- NOTE | 2018-11-27 16:37 | Non Stress Test Report ---
Non Stress Test Datetime Report Generated by CPN: 11/27/2018 16:37 DEMOGRAPHIC Test Number: 3 EGA NST: 36.6 INDICATION Indication for Study: Ordered by Provider MONITORING Monitor Explained: Monitor Explained; Test Explained; Patient Verbalized Understanding Time on Monitor: 11/27/2018 15:24 Time off Monitor: 11/27/2018 15:44 NST Duration: 20 NST INTERVENTIONS NST Interventions: PO Hydration Physician Notified NST: K Baig REPRODUCTION PRODUCTION MANAGER A: [id number] BABY A Movement : Present Contraction Frequency : irregular FHR Baseline : 130 Accelerations : 15X15 Decelerations : None Variability : Moderate 6-25bpm NST Review: Meets Criteria for Reactive NST NST Review and Verified By : Jessy Salinas RN NST Results: 130 NST REPORT Report Trigger: Send Report
== END 2018-11-27 16:39 | disposition home or self-care (01) ==
LOC: LC 15:09
PROVIDERS: ATTEND Obstetrics & Gynecology
PROC: 4A1HXCZ Monitoring of Products of Conception, Cardiac Rate, External Approach (ICD-10-PCS; principal; 2018-11-27)
DX: Z36.89 Encounter for other specified antenatal screening (principal)
CPT/HCPCS: 59025; 80307; 81001; 84112

== ENCOUNTER 2018-12-01 04:58 | Outpatient (CLI) | payer MEDICAID ==
[2018-12-01 05:33] LABS: APPEARANCE,URINE CLEAR; BILIRUBIN,URINE NEGATIVE (NEGATIVE); COLOR,URINE STRAW; GLUCOSE, URINE NEGATIVE (NEGATIVE); KETONES,URINE NEGATIVE (NEGATIVE); LEUKOCYTE ESTERASE,URINE NEGATIVE (NEGATIVE); NITRITE,URINE NEGATIVE (NEGATIVE); PROTEIN,URINE NEGATIVE (NEGATIVE); URINE SPECIFIC GRAVITY 1.005; UROBILINOGEN,URINE NEGATIVE mg/dL (<2.0)
[2018-12-01 05:51] LABS: URINE AMPHETAMINES SCREEN NEGATIVE; URINE BARBITURATES SCREEN NEGATIVE; URINE BENZODIAZEPINES SCREEN NEGATIVE; URINE COCAINE SCREEN NEGATIVE; URINE MARIJUANA (THC) SCREEN NEGATIVE; URINE METHADONE SCREEN NEGATIVE; URINE PHENCYCLIDINE SCREEN NEGATIVE
[2018-12-01] MEDS ORDERED: HYDROXYZINE PAMOATE 50 MG CAPSULE PO ONE (08:30)
--- NOTE | 2018-12-01 08:38 | Non Stress Test Report ---
Non Stress Test Datetime Report Generated by CPN: 12/01/2018 08:38 DEMOGRAPHIC Test Number: 4 EGA NST: 37.3 INDICATION Indication for Study: Ordered by Provider VITAL SIGNS Temperature - NST: 97.5 Pulse - NST: 84 RESP - NST: 18 NBPSYS NST: 126 NBPDIA NST: 68 MONITORING Monitor Explained: Monitor Explained; Test Explained; Patient Verbalized Understanding Time on Monitor: 12/01/2018 05:06 Time off Monitor: 12/01/2018 08:35 NST Duration: 209 NST INTERVENTIONS NST Interventions: PO Hydration Physician Notified NST: K Baig CNM BABY A: [id number] BABY A Movement : Present Contraction Frequency : occasional FHR Baseline : 135 Accelerations : 15X15 Decelerations : None Variability : Moderate 6-25bpm NST Review: Meets Criteria for Reactive NST NST Review and Verified By : Rosemarie Ott RN NSMackenzie Results: Reactive NST REPORT Report Trigger: Send Report
[2018-12-01] MEDS ORDERED: HYDROXYZINE PAMOATE 50 MG CAPSULE ONE (08:41)
== END 2018-12-01 08:51 | disposition home or self-care (01) ==
LOC: LC 04:58
PROVIDERS: ATTEND Obstetrics & Gynecology Gynecology
PROC: 4A1HXCZ Monitoring of Products of Conception, Cardiac Rate, External Approach (ICD-10-PCS; principal; 2018-12-01)
DX: O47.1 False labor at or after 37 completed weeks of gestation (principal); Z3A.37 37 weeks gestation of pregnancy
CPT/HCPCS: 59025; 81005; 80307; J3490

== ENCOUNTER 2019-03-10 01:51 | Emergency (ER) | payer MEDICAID ==
--- NOTE | 2019-03-10 02:33 | RADIOLOGY REPORT (SQ) ---
EXAM DESCRIPTION: XR ANKLE 3 OR MORE VIEWS COMPLETED DATE/TME: 03/10/2019 00:00 CLINICAL HISTORY: 23 years, Female, bone tenderness COMPARISON: None. NUMBER OF VIEWS: 3 TECHNIQUE: 3 views left ankle LIMITATIONS: None. FINDINGS: Negative for fracture or dislocation. Ankle mortise is intact IMPRESSION: Negative exam copyright 2010 [employer]- All Rights Reserved
[2019-03-10] MEDS ORDERED: ACETAMINOPHEN 325 MG TABLET PO ONE (03:30)
--- NOTE | 2019-03-10 04:45 | ER Document Report ---
ED General - General Chief Complaint: Ankle Injury Stated Complaint: POSSIBLE BROKEN ANKLE Time Seen by Provider: 03/10/19 04:36 TRAVEL OUTSIDE OF THE [place] IN LAST 30 DAYS: No - HPI Notes: Patient is a 23-year-old female who presents emergency department for evaluation of left ankle injury. She states she was walking, missed a step, inverted her ankle on the left, and fell onto her right knee. She denies hitting her head. No loss of consciousness. No neck or back pain. Her tetanus is up-to-date. She states her pain is worsened by bearing weight. It hurts on the lateral, anterior, and medial aspects of the ankle. - Related Data Allergies/Adverse Reactions: mushroom Allergy (Verified 12/01/18 05:48) Anaphylaxis tree nut Allergy (Verified 12/01/18 05:48) diphenhydramine [From Benadryl] Adverse Reaction (Verified 12/01/18 05:48) PT STATES MILD ITCHING peach Adverse Reaction (Verified 12/01/18 05:48) seafood Allergy (Uncoded 12/01/18 05:48) Anaphylaxis Past Medical History - General Information source: Patient - Social History Smoking Status: Never Smoker Family History: None Patient has suicidal ideation: No Patient has homicidal ideation: No Pulmonary Medical History: Reports: Hx Asthma Renal/ Medical History: Denies: Hx Peritoneal Dialysis Psychiatric Medical History: Reports: Hx Anxiety, Hx Depression - anxiety Past Surgical History: Reports: Hx Oral Surgery - wisdom, Hx Orthopedic Surgery - bilateral feet. - Immunizations Hx Diphtheria, Pertussis, Tetanus Vaccination: Yes Review of Systems - Review of Systems Constitutional: No symptoms reported EENT: No symptoms reported Cardiovascular: No symptoms reported Respiratory: No symptoms reported Gastrointestinal: No symptoms reported Genitourinary: No symptoms reported Musculoskeletal: See HPI Skin: See HPI Neurological/Psychological: No symptoms reported Physical Exam - Vital signs Vitals: Temp Pulse Resp BP Pulse Ox 98.1 F 80 16 97/42 L 97 03/10/19 01:55 03/10/19 01:55 03/10/19 01:55 03/10/19 01:55 03/10/19 01:55 - Notes Notes: Vital signs reviewed, please refer to chart. Head is normocephalic, atraumatic. Pupils equal round, reactive to light. Neck is supple without meningismus. Heart is regular rate and rhythm. Lungs are clear to auscultation bilaterally. Abdomen is soft, nontender, normoactive bowel sounds throughout. Extremities without cyanosis, clubbing. Posterior calves are nontender. Examination of the right knee reveals a superficial abrasion of personally 3 x 3 cm without active bleeding or clear foreign body. Full range of motion of the hip, knee, ankle, toes. Distal sensation is intact. Examination of the left lower extremity yields a moderate amount of edema about the lateral malleolus. She has mild tenderness to palpation over the posterior aspect of the lateral malleolus. No malleolus tenderness to the medial aspect. No fifth metatarsal head, no fibular head tenderness. Dorsalis pedis pulses 2+, capillary refill is brisk, sensation is intact. Course - Re-evaluation Re-evalutation: 03/10/19 04:43 Patient presents emergency department for evaluation. Her x-rays intermitted by myself as well as radiology showing no acute fracture. I do not see any indication for further imaging. Her wound is cleansed and closed. She will be placed in an ankle stirrup, given crutches, told to take ibuprofen [id number] as needed for pain. She is amenable to this plan, will follow- up with primary care. She is to return to the ED with worsening or new concerning symptoms of any sort. - Vital Signs Vital signs: Temp Pulse Resp BP Pulse Ox 98.1 F 80 16 107/47 L 97 03/10/19 01:55 03/10/19 01:55 03/10/19 01:55 03/10/19 01:59 03/10/19 01:55 Discharge - Discharge Clinical Impression: Abrasion, right knee, initial encounter Left ankle sprain Qualifiers: Encounter type: initial encounter Involved ligament of ankle: unspecified ligament Qualified Code(s): S93.402A - Sprain of unspecified ligament of left ankle, initial encounter Condition: Stable Disposition: HOME, SELF-CARE Instructions: Ankle Stirrup Splint ([facility]), Use of Crutches ([facility]), Ice & Elevation ([facility]) Additional Instructions: Keep the wound on your knee clean with soap and water, protected from infection. Crutches as needed for ambulation, use the ankle stirrup to keep your ankle from rolling. Follow-up with primary care this week. Ibuprofen as needed for pain. If you develop worsening or new concerning symptoms of any sort, please return immediately to the emergency department for reevaluation.
[2019-03-10 05:32] VITALS: BP 105/66
== END 2019-03-10 05:15 | disposition home or self-care (01) ==
LOC: ER 01:51
DX: S80.211A Abrasion, right knee, initial encounter (principal); S99.912A Unspecified injury of left ankle, initial encounter; X50.0XXA Overexertion from strenuous movement or load, initial encounter
CPT/HCPCS: 99283; 73610; L4350; J3490

== ENCOUNTER 2019-10-03 00:22 | Emergency (ER) | payer MEDICAID ==
[2019-10-03 01:16] LABS: ABSOLUTE LYMPHOCYTES (AUTO) 2.3 10^3/uL (0.5-4.7); ABSOLUTE MONOCYTES (AUTO) 0.9 10^3/uL (0.1-1.4); ABSOLUTE NEUT (AUTO) 5.7 10^3/uL (1.7-8.2); BASOPHILS % (AUTO) 0.5 % (0-2); EOSINOPHILS % (AUTO) 0.5 % (0-6); HEMATOCRIT 41.2 % (36.0-47.0); HEMOGLOBIN 14.2 g/dL (12.0-15.5); LYMPHOCYTES % (AUTO) 25.6 % (13-45); MEAN CORPUSCULAR HEMOGLOBIN 32.3 pg (27.0-33.4); MEAN CORPUSCULAR HGB CONC 34.3 g/dL (32.0-36.0); MEAN CORPUSCULAR VOLUME 94 fl (80-97); MONOCYTES % (AUTO) 9.8 % (3-13); PLATELET COUNT 248 10^3/uL (150-450); RED BLOOD COUNT 4.38 10^6/uL (3.72-5.28); RED CELL DISTRIBUTION WIDTH 14.1 % (11.5-14.0); SEGMENTED NEUTROPHILS % (AUTO) 63.6 % (42-78); TOTAL CELLS COUNTED % (AUTO) 100 %
[2019-10-03 01:17] LABS: APPEARANCE,URINE CLOUDY; BILIRUBIN,URINE NEGATIVE (NEGATIVE); COLOR,URINE YELLOW; GLUCOSE, URINE NEGATIVE (NEGATIVE); KETONES,URINE TRACE mg/dL (NEGATIVE); LEUKOCYTE ESTERASE,URINE NEGATIVE (NEGATIVE); NITRITE,URINE NEGATIVE (NEGATIVE); PROTEIN,URINE NEGATIVE (NEGATIVE); URINE SPECIFIC GRAVITY 1.027; UROBILINOGEN,URINE NEGATIVE mg/dL (<2.0)
[2019-10-03 01:35] LABS: ALBUMIN 4.9 g/dL (3.5-5.0); ALKALINE PHOSPHATASE 83 U/L (38-126); ANION GAP 9 (5-19); ASPARTATE AMINO TRANSFERASE 27 U/L (14-36); BILIRUBIN,TOTAL 0.5 mg/dL (0.2-1.3); BLOOD UREA NITROGEN 12 mg/dL (7-20); CALCIUM 9.7 mg/dL (8.4-10.2); CARBON DIOXIDE 25 mmol/L (22-30); CHLORIDE 104 mmol/L (98-107); GLUCOSE 97 mg/dL (75-110); POTASSIUM 3.6 mmol/L (3.6-5.0); TOTAL PROTEIN 8.4 g/dL (6.3-8.2)
[2019-10-03] MEDS ORDERED: ONDANSETRON HCL INJ/PF 4 MG/2 ML SDV IV ONE (01:44)
[2019-10-03] MEDS ORDERED: KETOROLAC TROMETHAMINE INJ/PF 30 MG/1 ML SDV IV ONE (01:44)
--- NOTE | 2019-10-03 01:51 | ER Document Report ---
ED GI/ - General Chief Complaint: OB Problem (<20wks) Stated Complaint: COMPLICATIONS Time Seen by Provider: 10/03/19 01:25 Primary Care Provider: [facility] [Provider Group] - Follow up as needed Mode of Arrival: Ambulatory Notes: 24-year-old female presents to ED for complaint of vaginal bleeding and possible miscarriage. She states she just found out she was 2 to 3 days ago when she did home . She states she has had some dark slimy blood ton ight so she thinks she might be having a miscarriage because of the pain. She is alert oriented respirations regular nonlabored speaking in full sentences. She states she did give 9 months ago and has not had a menstrual cycle since then. TRAVEL OUTSIDE OF THE [place] IN LAST 30 DAYS: No - HPI Patient complains to provider of: Pelvic pain, , Vaginal bleeding Onset: This evening Timing/Duration: Intermittent Quality of pain: Cramping Severity at maximum: Severe Severity in ED: Moderate Pain Level: 3 Location: Pelvis Vaginal bleeding (Compared to normal period): Spotting LMP: 9 months ago Associated symptoms: Nausea, Urinary frequency, Urinary urgency Exacerbated by: Denies Relieved by: Denies Similar symptoms previously: Yes Recently seen / treated by doctor: Yes - Related Data Allergies/Adverse Reactions: mushroom Allergy (Verified 12/01/18 05:48) Anaphylaxis tree nut Allergy (Verified 12/01/18 05:48) diphenhydramine [From Benadryl] Adverse Reaction (Verified 12/01/18 05:48) PT STATES MILD ITCHING peach Adverse Reaction (Verified 12/01/18 05:48) seafood Allergy (Uncoded 12/01/18 05:48) Anaphylaxis Past Medical History - General Information source: Patient - Social History Smoking Status: Never Smoker Frequency of alcohol use: None Drug Abuse: None Lives with: Family Family History: None Patient has suicidal ideation: No Patient has homicidal ideation: No - Past Medical History Cardiac Medical History: Reports: None Pulmonary Medical History: Reports: Hx Asthma EENT Medical History: Reports: None Neurological Medical History: Reports: None Endocrine Medical History: Reports: None Malignancy Medical History: Reports: None GI Medical History: Reports: None Musculoskeletal Medical History: Reports None Skin Medical History: Reports None Psychiatric Medical History: Reports: Hx Anxiety, Hx Depression - anxiety Traumatic Medical History: Reports: None Infectious Medical History: Reports: None Past Surgical History: Reports: Hx Oral Surgery - wisdom, Hx Orthopedic Surgery - bilateral feet. - Immunizations Hx Diphtheria, Pertussis, Tetanus Vaccination: Yes Review of Systems - Review of Systems Constitutional: No symptoms reported EENT: No symptoms reported Cardiovascular: No symptoms reported Respiratory: No symptoms reported Gastrointestinal: No symptoms reported Genitourinary: No symptoms reported Female Genitourinary: No symptoms reported Musculoskeletal: No symptoms reported Skin: No symptoms reported Hematologic/Lymphatic: No symptoms reported Neurological/Psychological: No symptoms reported -: Yes All other systems reviewed and negative Physical Exam - Vital signs Vitals: Temp Pulse Resp BP Pulse Ox 98.2 F 73 14 116/63 97 10/03/19 03:24 10/03/19 03:24 10/03/19 03:24 10/03/19 03:24 10/03/19 03:24 Interpretation: Normal - General General appearance: Appears well, Alert - HEENT Head: Normocephalic, Atraumatic Eyes: Normal Pupils: PERRL Ears: Normal External canal: Normal Tympanic membrane: Normal Sinus: Normal Nasal: Normal Mouth/Lips: Normal Mucous membranes: Normal Pharynx: Normal Neck: Normal - Respiratory Respiratory status: No respiratory distress Chest status: Nontender Breath sounds: Normal Chest palpation: Normal - Cardiovascular Rhythm: Regular Heart sounds: Normal auscultation Murmur: No - Abdominal Inspection: Normal Distension: No distension Bowel sounds: Normal Tenderness: Tender Organomegaly: No organomegaly - Back Back: Normal, Nontender - Extremities General upper extremity: Normal inspection, Nontender, Normal color, Normal ROM, Normal temperature General lower extremity: Normal inspection, Nontender, Normal color, Normal ROM, Normal temperature, Normal weight bearing. No: Bethany's sign - Neurological Neuro grossly intact: Yes Cognition: Normal Orientation: AAOx4 [place] Coma Scale Eye Opening: Spontaneous [place] Coma Scale Verbal: Oriented [place] Coma Scale Motor: Obeys Commands [place] Coma Scale Total: 15 Speech: Normal Motor strength normal: LUE, RUE, LLE, RLE Sensory: Normal - Psychological Associated symptoms: Normal affect, Normal mood - Skin Skin Temperature: Warm Skin Moisture: Dry Skin Color: Normal Course - Re-evaluation Re-evalutation: 10/03/19 04:41 Discussed labs and ultrasound with patient and written report of labs and ultrasound given to patient to follow-up with SOFTWARE INSTALLER. She was also instructed to follow-up in 2 days to get a repeat hCG quant. There is no lab and intrauterine but her quant was only 900. - Vital Signs Vital signs: Temp Pulse Resp BP Pulse Ox 98.2 F 73 14 116/63 97 10/03/19 03:24 10/03/19 03:24 10/03/19 03:24 10/03/19 03:24 10/03/19 03:24 - Laboratory Result Diagrams: 10/03/19 01:02 10/03/19 01:02 Laboratory results interpreted by me: 10/03/19 10/03/19 10/03/19 01:02 01:02 01:02 RDW 14.1 H Total Protein 8.4 H Beta HCG, Quant 941.34 H Urine Ketones TRACE H Urine Blood SMALL H - Diagnostic Test Radiology reviewed: Image reviewed, Reports reviewed Discharge - Discharge Clinical Impression: Pelvic cramping early , Vaginal bleeding affecting early Condition: Stable Disposition: HOME, SELF-CARE Additional Instructions: BLEEDING DURING EARLY : You have been evaluated for passing blood while . While we take this symptom very seriously, most women with your degree of bleeding will go on to have a perfectly normal baby. At this time, there is no indication that a miscarriage will occur. (A miscarriage occurs when the fetus is abnormal. There is no medicine or treatment to prevent it.) A more serious cause of bleeding is tubal (or ectopic) . An ultrasound usually can show whether the is in the uterus or in the tube. Sometimes in early , no fetus is seen. In this case, careful follow-up, including repeat blood tests and repeat ultrasound, is necessary. Do not douche or have sex for at least a week, or until OK'd by the doctor. Don't use tampons. Call the doctor or return for re-examination if there is an increase in bleeding or cramping, extreme weakness, fainting, new abdominal pain, fever, or passage of tissue. REPEAT BLOOD TEST: At this time, it is uncertain if you have a viable . During the first three months of , the hormone produced from the placenta will steadily rise, usually doubling in value every 2 - 3 days. In order to determine if your is viable and likely be succesful, a repeat of this blood test for the hormone is recommended in 2 - 3 days. An order for this test to be done as an outpatient is being provided. After you have this repeat test done, call your doctor or call us for the results. If the value of the test is increasing as would be expected in a normal , then your is likely to be ok. However, if the value of the test is declining, it will suggest something has happened with your and it will not likely be a successful . FOLLOW-UP CARE: If you have been referred to a physician for follow-up care, call the physicians office for an appointment as you were instructed or within the next two days. If you experience worsening or a significant change in your symptoms (very heavy bleeding with large clots of blood, passage of tissue, more severe abdominal / pelvic pain or cramping, feeling faint or severe weakness, fever, etc.), notify the physician immediately or return to the Emergency Department at any time for re-evaluation. OBSTETRIC-GYNECOLOGIC (OB-ELECTRIC WELDER HELPER) PHYSICIANS IN TERRAL: [facility] [address] [place] [address] [phone] Forms: Follow-Up Laboratory Testing Referrals: [facility] [Provider Group] - Follow up as needed
--- NOTE | 2019-10-03 02:56 | RADIOLOGY REPORT (SQ) ---
Ultrasound of the pelvis: 10/03/2019 1:50 AM CDT HISTORY: 24-year-old patient with , vaginal bleeding. TECHNIQUE: Multiple grayscale and color Doppler images of the pelvis were obtained transvaginally. COMPARISON: None available FINDINGS: The uterus measures 9.2 x 5.6 x 4.8 cm. The endometrium measures 18.0 mm in thickness. No intrauterine gestational sac is seen. The cervix measures at least 3.4 cm in length. No myometrial mass is seen. No free intraperitoneal fluid is seen within the posterior cul-de-sac. Both ovaries were not visualized due to overlying bowel gas. IMPRESSION: No intrauterine gestational sac is seen. This could represent a normal early or failed intrauterine . Interval follow-up with an obstetric care provider is recommended.
[2019-10-03 03:26] VITALS: BP 116/63
== END 2019-10-03 03:26 | disposition home or self-care (01) ==
LOC: ER 00:22
DX: O46.91 Antepartum hemorrhage, unspecified, first trimester (principal); O26.891 Other specified pregnancy related conditions, first trimester; R10.2 Pelvic and perineal pain; R11.0 Nausea; R35.0 Frequency of micturition; R39.15 Urgency of urination; Z3A.00 Weeks of gestation of pregnancy not specified; Z88.8 Allergy status to other drugs, medicaments and biological substances; O99.511 Diseases of the respiratory system complicating pregnancy, first trimester; J45.909 Unspecified asthma, uncomplicated
CPT/HCPCS: 99284; 96374; 96375; 36415; 84702; 83690; 85025; 80053; 81001; 76817; J1885; J2405

== ENCOUNTER 2019-11-02 23:19 | Emergency (ER) | payer MEDICAID ==
[2019-11-02] MEDS ORDERED: HYDROMORPHONE HCL INJ/PF 2 MG/ML AMPULE IV ONE (23:30)
[2019-11-02] MEDS ORDERED: ONDANSETRON HCL INJ/PF 4 MG/2 ML SDV IV ONE (23:49)
[2019-11-02 23:57] LABS: ABSOLUTE EOSINOPHILS # (AUTO) 0.1 10^3/uL (0.0-0.6); ABSOLUTE LYMPHOCYTES (AUTO) 1.9 10^3/uL (0.5-4.7); ABSOLUTE MONOCYTES (AUTO) 0.8 10^3/uL (0.1-1.4); ABSOLUTE NEUT (AUTO) 4.7 10^3/uL (1.7-8.2); BASOPHILS % (AUTO) 0.3 % (0-2); EOSINOPHILS % (AUTO) 0.9 % (0-6); HEMATOCRIT 35.7 % (36.0-47.0); HEMOGLOBIN 12.4 g/dL (12.0-15.5); MEAN CORPUSCULAR HEMOGLOBIN 32.5 pg (27.0-33.4); MEAN CORPUSCULAR HGB CONC 34.6 g/dL (32.0-36.0); MEAN CORPUSCULAR VOLUME 94 fl (80-97); MONOCYTES % (AUTO) 10.2 % (3-13); PLATELET COUNT 166 10^3/uL (150-450); RED CELL DISTRIBUTION WIDTH 14.3 % (11.5-14.0); SEGMENTED NEUTROPHILS % (AUTO) 62.6 % (42-78); TOTAL CELLS COUNTED % (AUTO) 100 %; WHITE BLOOD COUNT 7.5 10^3/uL (4.0-10.5)
[2019-11-03] LABS: ALBUMIN 3.3 g/dL (3.5-5.0); ALKALINE PHOSPHATASE 49 U/L (38-126); ANION GAP 5 (5-19); ASPARTATE AMINO TRANSFERASE 21 U/L (14-36); BILIRUBIN,TOTAL 0.2 mg/dL (0.2-1.3); BLOOD UREA NITROGEN 6 mg/dL (7-20); CALCIUM 8.7 mg/dL (8.4-10.2); CARBON DIOXIDE 25 mmol/L (22-30); CHLORIDE 103 mmol/L (98-107); GLUCOSE 90 mg/dL (75-110); POTASSIUM 3.8 mmol/L (3.6-5.0); TOTAL PROTEIN 6.3 g/dL (6.3-8.2)
--- NOTE | 2019-11-03 01:28 | RADIOLOGY REPORT (SQ) ---
FIRST TRIMESTER OBSTETRIC ULTRASOUND: 11/03/2019 12:24 AM CDT COMPARISON: None available HISTORY: 24-year old patient with vaginal bleeding, . TECHNIQUE: Multiple vargas scale and color Doppler images of the pelvis were obtained transabdominally and transvaginally. FINDINGS: The uterus measures 12.4 x 5.9 x 6.3 cm. The endometrium is thickened and measures at least 2.8 cm. There is increased vascularity noted at the endometrium. No intrauterine gestational sac is seen. The cervix measures 3.9 cm in length. There is a there is a heterogeneous area within the cervical canal likely representing hemorrhagic products or products of conception. Left ovary measures 2.8 x 2.3 x 1.8 cm. Arterial and venous waveforms were obtained from the left ovary. The right ovary was not visualized and is likely extruded by overlying bowel gas. No free fluid is seen in the cul-de-sac. IMPRESSION: No intrauterine gestational sac is seen. There is there are abnormal areas of increased echogenicity within the cervical canal, most likely representing products of conception. Interval follow-up with quantitative beta hCG levels is recommended. The endometrium is thickened with increased color Doppler vascularity. Interval follow-up is recommended to exclude retained products of conception. Obstetric follow up for routine care should be performed.
--- NOTE | 2019-11-03 03:00 | ER Document Report ---
Entered by NICKOLAS MOTA SCRIBE 11/02/19 5948 Acting as scribe for:DANIEL EDGAR IV, MD ED GI/ - General Stated Complaint: VAGINAL BLEEDING Time Seen by Provider: 11/02/19 23:22 Primary Care Provider: [facility] [NO LOCAL MD] - 11/05/19 Mode of Arrival: Medic Information source: Patient, Emergency Med Personnel Notes: This 24 year old female patient, A3, approximately x8 weeks brought in by EMS from home presents to the ED today with complaints of heavy vaginal bleeding for the past x4 hours related to possible miscarriage. Patient also reports associated nausea and severe abdominal pain/cramping. Per EMS, patient bled through x4 depends and received 4 mg Zofran and IV fluids. Patient mentions that she was seen here x1 month ago with the same complaint after a positive home test. During that visit, patient had a positive serum HCG and the obstetrics U/S revealed that there was no gestational sac seen which could represent a normal early or failed intrauterine . Patient states that she was supposed to follow up with the health department/[facility], but hasn't been able to. TRAVEL OUTSIDE OF THE [place] IN LAST 30 DAYS: No - Related Data Allergies/Adverse Reactions: mushroom Allergy (Verified 12/01/18 05:48) Anaphylaxis tree nut Allergy (Verified 12/01/18 05:48) diphenhydramine [From Benadryl] Adverse Reaction (Verified 12/01/18 05:48) PT STATES MILD ITCHING peach Adverse Reaction (Verified 12/01/18 05:48) seafood Allergy (Uncoded 12/01/18 05:48) Anaphylaxis Past Medical History - Social History Smoking Status: Unknown if Ever Smoked Family History: Reviewed & Not Pertinent Patient has suicidal ideation: No Patient has homicidal ideation: No Pulmonary Medical History: Reports: Hx Asthma Psychiatric Medical History: Reports: Hx Anxiety, Hx Depression - anxiety Past Surgical History: Reports: Hx Oral Surgery - wisdom, Hx Orthopedic Surgery - bilateral feet. - Immunizations Hx Diphtheria, Pertussis, Tetanus Vaccination: Yes Review of Systems - Review of Systems Constitutional: No symptoms reported EENT: No symptoms reported Cardiovascular: No symptoms reported Respiratory: No symptoms reported Gastrointestinal: See HPI, Abdominal pain, Nausea Genitourinary: No symptoms reported Female Genitourinary: See HPI, , Vaginal bleeding Musculoskeletal: No symptoms reported Skin: No symptoms reported Hematologic/Lymphatic: No symptoms reported Neurological/Psychological: No symptoms reported -: Yes All other systems reviewed and negative Physical Exam - Vital signs Vitals: Resp BP Pulse Ox 17 110/72 100 11/02/19 23:31 11/02/19 23:31 11/02/19 23:31 - General General appearance: Alert, Other - Appears uncomfortable, but not in extremis - HEENT Head: Normocephalic, Atraumatic Eyes: Normal Pupils: PERRL - Respiratory Respiratory status: No respiratory distress Chest status: Nontender Breath sounds: Normal Chest palpation: Normal - Cardiovascular Rhythm: Regular Heart sounds: Normal auscultation Murmur: No Friction rub: No Gallop: None auscultated - Abdominal Inspection: Normal Distension: No distension Bowel sounds: Normal Tenderness: Nontender - Abdomen soft Organomegaly: No organomegaly - Back Back: Normal, Nontender - Extremities General upper extremity: Normal inspection General lower extremity: Normal inspection - Neurological Neuro grossly intact: Yes Orientation: AAOx4 [place] Coma Scale Eye Opening: Spontaneous Agustin Coma Scale Verbal: Oriented [place] Coma Scale Motor: Obeys Commands [place] Coma Scale Total: 15 - Psychological Associated symptoms: Tearful - Skin Skin Temperature: Warm Skin Moisture: Dry Skin Color: Other - Pallor Course - Re-evaluation Re-evalutation: 11/03/19 03:02 Results of ED MSE discussed with patient. All questions were answered prior to discharge. Emergency signs and symptoms, reasons to return to the emergency department discussed with patient. - Vital Signs Vital signs: Temp Pulse Resp BP Pulse Ox 98.4 F 12 97/55 L 94 11/02/19 23:35 11/03/19 03:15 11/03/19 03:01 11/03/19 03:15 - Laboratory Result Diagrams: 11/02/19 23:23 11/02/19 23:23 Laboratory results interpreted by me: 11/02/19 11/02/19 23:23 23:23 Hct 35.7 L RDW 14.3 H Sodium 132.5 L BUN 6 L Albumin 3.3 L - Diagnostic Test Radiology reviewed: Reports reviewed Discharge - Discharge Clinical Impression: Incomplete miscarriage Condition: Stable Disposition: HOME, SELF-CARE Additional Instructions: Return to the Emergency Department without delay if any worse. HOME CARE INSTRUCTIONS & INFORMATION: Thank you for choosing us for your medical needs. We hope you're satisfied with the care you received. After you leave, you must properly care for your problem and, at the same time, observe its progress. Any condition can change. Some illnesses can change rapidly over hours or days. If your condition worsens, return to the Emergency Department or see your physician promptly. ABOUT YOUR X-RAYS AND EKG'S: If you had an EKG or X-rays taken, they have been read by the Emergency Physician. The X-rays and EKG's will also be read by a Radiologist or Knowledge Architect within 24 hours. If discrepancies are noted, you will be notified by telephone. Please be certain the ED has a correct telephone number & address where you can be reached. Also, realize that some fractures or abnormalities do not show up on initial X-rays. If your symptoms continue, see your physician. ABOUT YOUR LABORATORY TEST: If you had laboratory tests, the results have been reviewed by the Emergency Physician. Some test results (for example cultures) may not be available for several days. You will be contacted if any test result shows you need additional treatment. Please be certain the ED has a correct telephone number and address where you can be reached. ABOUT YOUR MEDICATIONS: You will receive instructions on how to take your medicine on the prescription label you receive. Additional information may be provided by the Pharmacy. If you have questions afterwards, call the ED for clarification or further instructions. Some prescribed medications may cause drowsiness. Do not perform tasks such as driving a car or operating machinery without consulting your Pharmacist. If you feel you need a refill of pain medi cation, your condition will need re-evaluation. Please do not call for a refill of any medication. ABOUT YOUR SIGNATURE: Signature of this document acknowledges to followin. Understanding that you received emergency treatment and that you may be released before al medical problems are known or treated. Please be certain the ED has a correct phone number & address where you can be reached. 2. Acknowledgement that you will arrange for follow-up care as recommended. 3. Authorization for the Emergency Physician to provide information to your follow-up Physician in order to maximize your care. AT ANY TIME, IF YOUR SYMPTOMS CHANGE SIGNIFICANTLY OR WORSEN OR YOU DEVELOP NEW SYMPTOMS, RETURN TO THE EMERGENCY DEPARTMENT IMMEDIATELY FOR RE-EVALUATION. OUR GOAL IS TO PROVIDE EXCELLENT MEDICAL CARE! WE HOPE THAT WE HAVE MET YOUR EXPECTATIONS DURING YOUR EMERGENCY DEPARTMENT VISIT AND THAT YOU FEEL YOU HAVE RECEIVED EXCELLENT CARE! Miscarriage You have had a miscarriage (medically called a "spontaneous "). The miscarriage occurred because the fetus did not develop normally. There is nothing you did to cause it, and nothing you could have done to prevent it. About one in four ends in miscarriage. You should rest in bed for two or three days. As there is some risk of infection of the uterus, you should not have intercourse for one week (or until okayed by your physician). You might not have a period for six to eight weeks. You should not become again for at least three months -- the uterus requires time to get back to normal. Call the doctor or return for re-examination if there is heavy or persistent vaginal bleeding, fever, foul discharge, continued cramping pains, or abdominal pain. Prescriptions: Promethazine HCl [Phenergan 25 mg Tablet] 25 mg PO Q6HP PRN #12 tablet PRN Reason: nausea [facility] - 11/05/19 I personally performed the services described in the documentation, reviewed and edited the documentation which was dictated to the scribe in my presence, and it accurately records my words and actions.
[2019-11-03] MEDS ORDERED: HYDROMORPHONE HCL INJ/PF 2 MG/ML AMPULE IV ONE (03:02)
[2019-11-03] MEDS ORDERED: PROMETHAZINE HCL INJ 25 MG/1 ML VIAL IV ONE (03:03)
[2019-11-03 03:22] VITALS: BP 97/55
--- NOTE | 2019-11-03 10:21 | EKG REPORT ---
SEVERITY:- NORMAL ECG - SINUS RHYTHM : Confirmed by: Yanet Sahu 03-Nov-2019 10:20:49
== END 2019-11-03 03:43 | disposition home or self-care (01) ==
LOC: ER 23:19
DX: O03.4 Incomplete spontaneous abortion without complication (principal); O26.891 Other specified pregnancy related conditions, first trimester; R10.9 Unspecified abdominal pain; R11.0 Nausea; Z3A.08 8 weeks gestation of pregnancy; Z88.8 Allergy status to other drugs, medicaments and biological substances; O99.511 Diseases of the respiratory system complicating pregnancy, first trimester; J45.909 Unspecified asthma, uncomplicated
CPT/HCPCS: 93005; 96376; 99284; 96374; 96375; 86900; 86901; 36415; 86850; 85025; 80053; 76801; 93976; 93010; J1170 ×2; J2550; J2405

== ENCOUNTER 2019-11-13 01:45 | Inpatient (IN) | payer MEDICAID ==
[2019-11-13 02:39] LABS: ABSOLUTE EOSINOPHILS # (AUTO) 0.1 10^3/uL (0.0-0.6); ABSOLUTE LYMPHOCYTES (AUTO) 1.7 10^3/uL (0.5-4.7); ABSOLUTE MONOCYTES (AUTO) 0.5 10^3/uL (0.1-1.4); BASOPHILS % (AUTO) 0.3 % (0-2); EOSINOPHILS % (AUTO) 1.7 % (0-6); HEMATOCRIT 36.2 % (36.0-47.0); HEMOGLOBIN 12.2 g/dL (12.0-15.5); LYMPHOCYTES % (AUTO) 27.5 % (13-45); MEAN CORPUSCULAR HEMOGLOBIN 31.4 pg (27.0-33.4); MEAN CORPUSCULAR HGB CONC 33.7 g/dL (32.0-36.0); MEAN CORPUSCULAR VOLUME 93 fl (80-97); MONOCYTES % (AUTO) 7.5 % (3-13); PLATELET COUNT 235 10^3/uL (150-450); RED BLOOD COUNT 3.89 10^6/uL (3.72-5.28); RED CELL DISTRIBUTION WIDTH 14.1 % (11.5-14.0); TOTAL CELLS COUNTED % (AUTO) 100 %; WHITE BLOOD COUNT 6.3 10^3/uL (4.0-10.5)
[2019-11-13 02:44] LABS: PROTHROMBIN TIME 14.4 SEC (11.4-15.4)
[2019-11-13 02:55] LABS: ALBUMIN 4.3 g/dL (3.5-5.0); ALKALINE PHOSPHATASE 62 U/L (38-126); ANION GAP 9 (5-19); ASPARTATE AMINO TRANSFERASE 20 U/L (14-36); BILIRUBIN,TOTAL 0.3 mg/dL (0.2-1.3); BLOOD UREA NITROGEN 5 mg/dL (7-20); CALCIUM 9.3 mg/dL (8.4-10.2); CARBON DIOXIDE 25 mmol/L (22-30); CHLORIDE 104 mmol/L (98-107); GLUCOSE 96 mg/dL (75-110); POTASSIUM 3.8 mmol/L (3.6-5.0); TOTAL PROTEIN 7.5 g/dL (6.3-8.2)
[2019-11-13 03:15] LABS: APPEARANCE,URINE CLEAR; BILIRUBIN,URINE NEGATIVE (NEGATIVE); COLOR,URINE YELLOW; GLUCOSE, URINE NEGATIVE (NEGATIVE); KETONES,URINE NEGATIVE (NEGATIVE); LEUKOCYTE ESTERASE,URINE TRACE (NEGATIVE); NITRITE,URINE NEGATIVE (NEGATIVE); PROTEIN,URINE NEGATIVE (NEGATIVE); URINE SPECIFIC GRAVITY 1.016
[2019-11-13] MEDS ORDERED: ACETAMINOPHEN 650 MG SUPP.RECT PR ONE (03:48)
[2019-11-13] MEDS ORDERED: NORMAL SALINE 1000 ML 1,000 ML IV ONE (03:54)
--- NOTE | 2019-11-13 04:25 | RADIOLOGY REPORT (SQ) ---
EXAM DESCRIPTION: US TRANSVAGINAL COMPLETED DATE/TME: 11/13/2019 03:18 CLINICAL HISTORY: 24 years, Female, 1st trimester vaginal bleeding COMPARISON: 11/03/2019 ultrasound TECHNIQUE: Emergent OB ultrasound LIMITATIONS: None. FINDINGS: The uterus measures 9.6 x 6.2 x 5.3 cm. The endometrium is thickened measuring 2.3 cm in diameter and heterogeneous in echotexture. There is no intrauterine gestation. The myometrium is homogenous. The right ovary measures 2.8 x 1.6 x 2.1 cm, the left 2.3 x 1.6 x 1.7 cm. Normal flow to each ovary. No adnexal cyst or mass. No free fluid. IMPRESSION: Diffusely abnormal thickened, heterogeneous echotexture to the endometrium. No IUP. Similar findings were present previously copyright 2011 [facility]- All Rights Reserved
[2019-11-13] MEDS ORDERED: ONDANSETRON HCL INJ/PF 4 MG/2 ML SDV IV ONE ×2 (05:12→09:45)
[2019-11-13] MEDS ORDERED: ACETAMINOPHEN 325 MG TABLET PO ONE (05:12)
--- NOTE | 2019-11-13 05:40 | ER Document Report ---
ED General - General Chief Complaint: Vaginal Bleeding Stated Complaint: VAGINAL BLEEDING TRAVEL OUTSIDE OF THE [place] IN LAST 30 DAYS: No - HPI Notes: 23-year-old female unable to recall LMP presents with 10 days of persisten t vaginal bleeding after miscarriage. Patient says that she came to ED 10 days ago and had miscarriage here and very tiny embryo/fetus with fingers and had heavy bleeding at that time which improved in ED and was discharged with some bleeding that persisted. Patient says she has been using approximately 10 pads per day since being discharged from ED and return to ED tonight because she had worsening bleeding with weekly size blood clot. Patient has been feeling generally weak and has had diffuse pelvic pain throughout this time associated with nausea when it worsens intermittently. Few episodes of nonbloody nonbilious emesis but mostly tolerating p.o. Patient has had pregnancies complicated by abruption, severe prematurity, and had a healthy term last year and that she delivered here. Patient denies any fever, abdominal pain, vaginal discharge, urinary symptoms, bleeding diatheses, anticoagulation, syncope, trauma - Related Data Allergies/Adverse Reactions: mushroom Allergy (Verified 12/01/18 05:48) Anaphylaxis tree nut Allergy (Verified 12/01/18 05:48) diphenhydramine [From Benadryl] Adverse Reaction (Verified 12/01/18 05:48) PT STATES MILD ITCHING peach Adverse Reaction (Verified 12/01/18 05:48) seafood Allergy (Uncoded 12/01/18 05:48) Anaphylaxis Home Medications: epi pen, inhaler, phenergan Past Medical History - General Information source: Patient, [facility] Records - Social History Smoking Status: Never Smoker Frequency of alcohol use: None Drug Abuse: None Family History: Reviewed & Not Pertinent Patient has homicidal ideation: No Pulmonary Medical History: Reports: Hx Asthma Psychiatric Medical History: Reports: Hx Anxiety, Hx Depression - anxiety Past Surgical History: Reports: Hx Oral Surgery - wisdom, Hx Orthopedic Surgery - bilateral feet. - Immunizations Hx Diphtheria, Pertussis, Tetanus Vaccination: Yes Review of Systems - Review of Systems Notes: REVIEW OF SYSTEMS: CONSTITUTIONAL : Denies fever, chills, or sweats. EENT: Denies recent cold/sinus symptoms, denies throat pain CARDIOVASCULAR: Denies chest pain, [place] RESPIRATORY: Denies cough, denies shortness of breath. GASTROINTESTINAL: Denies abdominal pain, +nausea/vomiting. GENITOURINARY: Denies difficulty urinating, painful urination. FEMALE GENITOURINARY: +abnormal vaginal bleeding, -vaginal discharge. MUSCULOSKELETAL: Denies neck pain, back pain. SKIN: Denies rash or skin lesions. HEMATOLOGIC : Denies easy bruising or bleeding. LYMPHATIC: Denies swollen, enlarged glands. NEUROLOGICAL: Denies headache, denies change in gait. PSYCHIATRIC: Denies anxiety or stress or depression. Physical Exam - Vital signs Vitals: Temp Pulse Resp BP Pulse Ox 98.6 F 78 16 96/63 L 100 11/13/19 02:04 11/13/19 02:04 11/13/19 02:04 11/13/19 02:04 11/13/19 02:04 - Notes Notes: PHYSICAL EXAMINATION: GENERAL: Well-appearing, well-nourished and in no acute distress. HEAD: Atraumatic, normocephalic. EYES: Pupils equal round and appropriate constriction, sclera anicteric, conjunc tiva are normal. ENT: nares patent, moist mucous membranes. NECK: Normal range of motion, supple without lymphadenopathy LUNGS: Breath sounds clear to auscultation bilaterally and equal. No wheezes rales or rhonchi. HEART: Regular rate and rhythm without murmurs ABDOMEN: Soft, nontender, no guarding, no rebound, no masses, no CVAT PELVIC: Small clots in vaginal vault with very low volume oozing of dark blood from office which is closed, no discharge, normal office inspection, mild CMT, no adnexal tenderness or masses EXTREMITIES: Normal range of motion, no pitting or edema. No cyanosis. NEUROLOGICAL: Awake, alert, conversing appropriately, moves all extremities spontaneously. PSYCH: Normal mood, normal affect. SKIN: Warm, Dry, normal turgor, no rashes or lesions noted. Course - Re-evaluation Re-evalutation: 11/13/19 05:37 Persistent vaginal bleeding since miscarriage associated with pelvic pain which precipitates nausea/vomiting, patient very well-appearing, normal vital signs, normal abdominal exam. HCG has markedly increased since patient had miscarriage 10 days ago and is well above ultrasound discriminatory zone and still no IUP is seen. Given apparently reliable story of miscarriage concern for heterotopic with current ectopic versus retained products versus less likely mal ignancy. Normal hemoglobin. Discussed case with metal tester regional sales consultant Dr. Mae who plans to take patient to the OR for D&C. Will obtain type and screen which was canceled as patient has previously been Rh+. We will continue to monitor pending gynecology and present eval and transfer to OR. 11/13/19 06:08 Dr. Mae in the ED evaluating patient. Patient on-call to the OR. - Vital Signs Vital signs: Temp Pulse Resp BP Pulse Ox 97.5 F 49 L 12 92/42 L 98 11/13/19 19:50 11/13/19 19:50 11/13/19 19:50 11/13/19 19:50 11/13/19 19:50 - Laboratory Result Diagrams: 11/13/19 16:03 11/13/19 02:25 Laboratory results interpreted by me: 11/13/19 11/13/19 11/13/19 02:25 02:25 03:00 RBC Hgb Hct RDW 14.1 H BUN 5 L Beta HCG, Quant 9135.60 H Urine Blood MODERATE H Urine Urobilinogen 2.0 H Ur Leukocyte Esterase TRACE H 11/13/19 16:03 RBC 3.03 L Hgb 9.6 L D Hct 28.8 L RDW BUN Beta HCG, Quant Urine Blood Urine Urobilinogen Ur Leukocyte Esterase Discharge - Discharge Clinical Impression: Incomplete miscarriage Disposition: SAME DAY SURGERY Admitting Provider: wetlands conservation laborer Dr. Mae
[2019-11-13] MEDS ORDERED: MORPHINE SULFATE 10 MG/ML INJ IV ONE (10:00)
[2019-11-13] MEDS ORDERED: CEFAZOLIN 2 GM/D5W RTU 2 GM/50 ML RTUPB IV PRN (11:47)
--- NOTE | 2019-11-13 11:47 | PDOC H&P ---
History of Present Illness Admission Date/PCP: 23-year-old unable to recall LMP who presented with 10 days of persistent vaginal bleeding after miscarriage. Patient says that she came to ED 10 days ago and had miscarriage here and very tiny embryo/fetus with fingers and had heavy bleeding at that time which improved in ED and was discharged with some bleeding that persisted. Patient says "using 10 pads per day" since being discharged from ED and return to ED last night because she had worsening bleeding with large blood clots. Patient has been feeling generally weak and has had diffuse pelvic pain throughout this time associated with nausea when it worsens intermittently. SOme vomiting but mostly tolerating p.o. Patient has had pregnancies complicated by abruption, severe prematurity, and had a healthy term last year and that she delivered here. Patient denies any fever, abdominal pain, vaginal discharge, urinary symptoms, bleeding diatheses, anticoagulation, syncope, trauma History of Present Illness: [place] is a 24 year old female Past Medical History Pulmonary Medical History: Reports: Asthma Psychiatric Medical History: Reports: Depression - anxiety Past Surgical History Past Surgical History: Reports: Orthopedic Surgery - bilateral feet. Social History Smoking Status: Never Smoker Family History Family History: Reviewed & Not Pertinent Parental Family History Reviewed: Yes Children Family History Reviewed: Yes Sibling(s) Family History Reviewed.: Yes Medication/Allergy Home Medications: Vit,Calc76/Iron/Folic [Prenatabs Rx Tablet] 1 tab PO DAILY 10/06/18 Promethazine HCl [Phenergan 25 mg Tablet] 25 mg PO Q6HP PRN #12 tablet 11/03/19 Allergies/Adverse Reactions: mushroom Allergy (Verified 12/01/18 05:48) Anaphylaxis tree nut Allergy (Verified 12/01/18 05:48) diphenhydramine [From Benadryl] Adverse Reaction (Verified 12/01/18 05:48) PT STATES MILD ITCHING peach Adverse Reaction (Verified 12/01/18 05:48) seafood Allergy (Uncoded 12/01/18 05:48) Anaphylaxis Review of Systems Constitutional: PRESENT: chills. ABSENT: fever(s), headache(s), weight gain, weight loss Cardiovascular: ABSENT: chest pain, dyspnea on exertion, edema, orthropnea, palpitations Respiratory: ABSENT: cough, hemoptysis Gastrointestinal: PRESENT: as per HPI, abdominal pain Genitourinary: ABSENT: dysuria, hematuria Musculoskeletal: ABSENT: joint swelling Neurological: ABSENT: abnormal gait, abnormal speech, confusion, dizziness, focal weakness, syncope Endocrine: ABSENT: cold intolerance, heat intolerance, polydipsia, polyuria Physical Exam - Physical Exam Vital Signs: Temp Pulse Resp BP Pulse Ox 98.9 F 80 13 107/52 L 97 11/13/19 11:00 11/13/19 08:45 11/13/19 11:01 11/13/19 11:00 11/13/19 11:01 Intake & Output 11/12/19 11/13/19 11/14/19 06:59 06:59 06:59 Intake Total 1000 Balance 1000 Weight 68.946 kg General appearance: PRESENT: no acute distress, cooperative, other - Pale Respiratory exam: PRESENT: clear to auscultation obed Cardiovascular exam: PRESENT: RRR, +S1, +S2 GI/Abdominal exam: PRESENT: soft, tenderness - central lower abodmen. NO rebound or guarding Extremities exam: PRESENT: full ROM. ABSENT: calf tenderness, clubbing, pedal edema Neurological exam: PRESENT: alert, awake, oriented to person, oriented to place, oriented to time Psychiatric exam: PRESENT: appropriate affect, normal mood. ABSENT: homicidal ideation, suicidal ideation Skin exam: PRESENT: dry, intact, pallor, warm Result Laboratory Results: 11/13/19 02:25 11/13/19 02:25 11/13/19 11/13/19 11/13/19 02:25 02:25 02:25 WBC 6.3 RBC 3.89 Hgb 12.2 Hct 36.2 MCV 93 MCH 31.4 MCHC 33.7 RDW 14.1 H Plt Count 235 Seg Neutrophils % 63.0 Sodium 138.4 Potassium 3.8 Chloride 104 Carbon Dioxide 25 Anion Gap 9 BUN 5 L Creatinine 0.59 Est GFR ( Amer) > 60 Glucose 96 Calcium 9.3 Total Bilirubin 0.3 AST 20 Alkaline Phosphatase 62 Total Protein 7.5 Albumin 4.3 Urine Color Urine Appearance Urine pH Ur Specific [place] Urine Protein Urine Glucose (UA) Urine Ketones Urine Blood Urine Nitrite Ur Leukocyte Esterase Urine WBC (Auto) Urine RBC (Auto) Blood Type O POSITIVE Antibody Screen NEGATIVE 11/13/19 03:00 WBC RBC Hgb Hct MCV MCH MCHC RDW Plt Count Seg Neutrophils % Sodium Potassium Chloride Carbon Dioxide Anion Gap BUN Creatinine Est GFR ( Amer) Glucose Calcium Total Bilirubin AST Alkaline Phosphatase Total Protein Albumin Urine Color YELLOW Urine Appearance CLEAR Urine pH 7.0 Ur Specific [place] 1.016 Urine Protein NEGATIVE Urine Glucose (UA) NEGATIVE Urine Ketones NEGATIVE Urine Blood MODERATE H Urine Nitrite NEGATIVE Ur Leukocyte Esterase TRACE H Urine WBC (Auto) 2 Urine RBC (Auto) 13 Blood Type Antibody Screen Impressions: Obstetrics Ultrasound 11/13/19 03:18 IMPRESSION: Diffusely abnormal thickened, heterogeneous echotexture to the endometrium. No IUP. Similar findings were present previously copyright 2011 [facility]- All Rights Reserved Assessment & Plan - Diagnosis (1) Retained products of conception Is this a current diagnosis for this admission?: Yes (2) Vaginal bleeding Is this a current diagnosis for this admission?: Yes (3) Endometritis Is this a current diagnosis for this admission?: Yes - Time Critical Time spent with patient: Less than 15 minutes Medications reviewed and adjusted accordingly: Yes Anticipated Discharge Disposition: Home, Self Care Anticipated Discharge Timeframe: within 24 hours - Plan Summary Plan Summary: 24 yo with retained products of conception after delivery of late first trimester to early second trimester loss a week ago. Now with heavy bleeding, odorous vaginal discharge and tenderness on palpation of uterus -VSS presently, afebirle. B/P on low end presently -CBC normal -Type and screen done -Plan for suction dilation and curettage due to continued bleeding, large clots and concern of endometritis -Ancef 2 gms IV prior to OR -She is RH positive
[2019-11-13] MEDS ORDERED: CEFAZOLIN INJ 1 GM VIAL ONE (11:52)
[2019-11-13] MEDS ORDERED: MORPHINE SULFATE 10 MG/ML INJ ONE (11:58)
[2019-11-13] MEDS ORDERED: MIDAZOLAM 2 MG/2 ML INJ ONE (11:58)
[2019-11-13] MEDS ORDERED: PROPOFOL INJ 200 MG/20 ML VIAL IV ONE (11:59)
[2019-11-13] MEDS ORDERED: OXYCODONE-ACETAMINOPHEN 5-325 MG TABLET PO PRN ×2 (12:22)
[2019-11-13] MEDS ORDERED: PROMETHAZINE HCL INJ 25 MG/1 ML VIAL IV PRN ×2 (12:22)
[2019-11-13] MEDS ORDERED: MORPHINE SULFATE 10 MG/ML INJ IV PRN (12:22)
[2019-11-13] MEDS ORDERED: FENTANYL CITRATE INJ/PF 100 MCG/2 ML AMPUL IV PRN ×3 (12:22)
[2019-11-13] MEDS ORDERED: MEPERIDINE HCL/PF INJ 25 MG/1 ML DISP.SYRIN IV PRN (12:22)
[2019-11-13] MEDS ORDERED: KETOROLAC TROMETHAMINE INJ/PF 30 MG/1 ML SDV ONE (12:39)
[2019-11-13] MEDS ORDERED: ACETAMINOPHEN 1,000 MG/100 ML RTUPB IV ONE (12:39)
--- NOTE | 2019-11-13 12:39 | Operative Report ---
Operative Report DATE OF SURGERY: 11/13/19 PREOPERATIVE DIAGNOSIS: Retained products of conception. Heavy vaginal bleedin g. Endometritis POSTOPERATIVE DIAGNOSIS: Same as above OPERATION: Suction Dilation and curettage SURGEON: JAMES DISLA ANESTHESIA: LMAC TISSUE REMOVED OR ALTERED: Products of conception COMPLICATIONS: None ESTIMATED BLOOD LOSS: 150cc INTRAOPERATIVE FINDINGS: Cervix dilated to 1 cm and odorous vaginal discharge noted. Products of conception/tissue noted during suction dilation and curettage. Uterus firm on bimanual palpation and small after procedure PROCEDURE: IV fluids: Crystalloid IV fluids per anesthesia record Disposition: To recovery room in stable condition Description of the procedure: The patient was taken to the operating room where monitored anesthesia was administered and found to be adequate. She was then placed in the dorsol lithotomy position and prepped and draped in the usual sterile fashion. A timeout was taken. Ancef 2 gms given IV prior to the procedure. A weighted speculum was placed in the vagina and a Bynum retractor was used to bring the cervix into good view. A single-tooth tenaculum was used to grasp the anterior lip of the cervix and the cervix was already dilated to approximately 1 cm. The uterus sounded to approximately 9 cm and the cervix was dilated to approximately 10 mm which required minimal dilation as os was already dilated to nearly 1 cm. The #10 suction curette was inserted and using suction, the products of conception were removed. The suction curette was removed and a regular curette was advanced to the uterine fundus. Gentle curettage was done in a circumferential manner until a gritty texture was noted. The curette was removed and suction curette re-inserted to the fundus. Suction curettage done once more. The tissue obtained will be sent to the lab as products of conception. The procedure was then terminated all instrument to remove the patient's vagina. The patient tolerated the procedure well all instrument sponge and needle counts were correct x2 for the procedure she will proceed to recovery room in stable condition
[2019-11-13] MEDS ORDERED: FENTANYL CITRATE INJ/PF 100 MCG/2 ML AMPUL ONE (12:55)
[2019-11-13] MEDS ORDERED: HYDROMORPHONE HCL INJ/PF 2 MG/ML AMPULE ONE (13:09)
[2019-11-13] MEDS ORDERED: ONDANSETRON 4 MG TAB.RAPDIS PO PRN (15:10)
[2019-11-13] MEDS ORDERED: PROMETHAZINE HCL 25 MG SUPP.RECT PR PRN (15:24)
[2019-11-13] MEDS: HYDROCODONE/ACETAMINOPHEN 5-325 MG TABLET PO PRN (16:28)
[2019-11-13 17:10] LABS: ABSOLUTE EOSINOPHILS # (AUTO) 0.1 10^3/uL (0.0-0.6); ABSOLUTE LYMPHOCYTES (AUTO) 2.4 10^3/uL (0.5-4.7); ABSOLUTE MONOCYTES (AUTO) 0.5 10^3/uL (0.1-1.4); ABSOLUTE NEUT (AUTO) 2.7 10^3/uL (1.7-8.2); BASOPHILS % (AUTO) 0.4 % (0-2); EOSINOPHILS % (AUTO) 1.8 % (0-6); HEMATOCRIT 28.8 % (36.0-47.0); LYMPHOCYTES % (AUTO) 41.8 % (13-45); MEAN CORPUSCULAR HEMOGLOBIN 31.6 pg (27.0-33.4); MEAN CORPUSCULAR HGB CONC 33.3 g/dL (32.0-36.0); MEAN CORPUSCULAR VOLUME 95 fl (80-97); MONOCYTES % (AUTO) 8.4 % (3-13); PLATELET COUNT 167 10^3/uL (150-450); RED BLOOD COUNT 3.03 10^6/uL (3.72-5.28); RED CELL DISTRIBUTION WIDTH 13.9 % (11.5-14.0); SEGMENTED NEUTROPHILS % (AUTO) 47.6 % (42-78); TOTAL CELLS COUNTED % (AUTO) 100 %; WHITE BLOOD COUNT 5.8 10^3/uL (4.0-10.5)
--- NOTE | 2019-11-13 17:26 | RADIOLOGY REPORT (SQ) ---
EXAM DESCRIPTION: CT HEAD WITHOUT IMAGES COMPLETED DATE/TIME: 11/13/2019 5:04 pm REASON FOR STUDY: Patient fall and hit left side of head COMPARISON: 09/13/2016 TECHNIQUE: Axial images acquired through the brain without intravenous contrast. Images reviewed wi th bone, brain and subdural windows. Additional sagittal and coronal reconstructions were generated. Images stored on PACS. All CT scanners at this facility use dose modulation, iterative reconstruction, and/or weight based d osing when appropriate to reduce radiation dose to as low as reasonably achievable (ALARA). [facility]: Dose Right [facility]: CareDose [facility]: Dose Right [facility]: Teradose 4D [facility]: Smart Novarra RADIATION DOSE: CT Rad equipment meets quality standard of care and radiation dose reduction techniq ues were employed. CTDIvol: 53.2 mGy. DLP: 1070 mGy-cm. mGy. LIMITATIONS: None. FINDINGS: VENTRICLES: Normal size and contour. CEREBRUM: No masses. No hemorrhage. No midline shift. No evidence for acute infarction. Normal gra y/white matter differentiation. No areas of low density in the white matter. CEREBELLUM: No masses. No hemorrhage. No alteration of density. No evidence for acute infarction. EXTRAAXIAL SPACES: No fluid collections. No masses. ORBITS AND GLOBE: No intra- or extraconal masses. Normal contour of globe without masses. CALVARIUM: No fracture. PARANASAL SINUSES: No fluid or mucosal thickening. SOFT TISSUES: No mass or hematoma. OTHER: No other significant finding. IMPRESSION: NORMAL BRAIN CT WITHOUT CONTRAST. EVIDENCE OF ACUTE STROKE: NO. COMMENT: Quality ID # [id number]: Final reports with documentation of one or more dose reduction techniques (e.g., Automated exposure control, adjustment of the mA and/or kV according to patient size, use of iterative reconstruction technique) TECHNICAL DOCUMENTATION: JOB ID: [id number] 2010 [employer]- All Rights Reserved Reading location - IP/workstation name: [email or web address]
[2019-11-13 17:30] LABS: HEMOGLOBIN 9.6 g/dL (12.0-15.5)
[2019-11-13] MEDS: DOXYCYCLINE HYCLATE 100 MG TABLET PO SCH (18:03)
[2019-11-13] MEDS: IBUPROFEN 800 MG TABLET PO SCH (21:26)
[2019-11-13] MEDS ORDERED: FERROUS SULFATE 325 MG TABLET PO SCH (22:00)
--- NOTE | 2019-11-13 22:04 | PDOC PROGRESS REPORT ---
Subjective Progress Note for:: 11/13/19 Subjective:: Called to patients room because patient was out of bed for the first time since D&C and fell in the restroom. Reports hitting head on left side. Head vs toilet. She reports no weakness, vision changes, or other new sympotms. Had pain at time but not now. No n/v. Neuro exam done and no abnormal findings noted. No weakness in upper or lower extremities, smile symmetrical, tongue protrudes mid line, MARIANELA. She has no palpable lump, no abrasions or bruising. CT head ordered. Instructed patient to call out in future when getting up until she is more steady WHile I was ordering CT, she called out with blurring vision then called out again stating that her head would not stop moving Reason For Visit: DNC Physical Exam - Physical Exam Vital Signs: Temp Pulse Resp BP Pulse Ox 97.5 F 49 L 12 92/42 L 98 11/13/19 19:50 11/13/19 19:50 11/13/19 19:50 11/13/19 19:50 11/13/19 19:50 Intake & Output 11/12/19 11/13/19 11/14/19 06:59 06:59 06:59 Intake Total 1000 1300 Output Total 150 Balance 1000 1150 Weight 68.946 kg General appearance: PRESENT: no acute distress, cooperative Head exam: PRESENT: atraumatic, normocephalic Eye exam: PRESENT: conjunctiva pink, PERRLA - no nystagmus. Respiratory exam: PRESENT: clear to auscultation obed Cardiovascular exam: PRESENT: RRR, +S1, +S2 GI/Abdominal exam: PRESENT: normal bowel sounds, soft Extremities exam: PRESENT: other - strengths equal bilaterally UE and LE Neurological exam: PRESENT: alert, awake, oriented to person, oriented to place, oriented to time, CN II-XII grossly intact Psychiatric exam: PRESENT: appropriate affect, normal mood. ABSENT: homicidal ideation, suicidal ideation Skin exam: PRESENT: dry, intact, warm. ABSENT: cyanosis, rash Result Laboratory Results: 11/13/19 16:03 11/13/19 02:25 11/13/19 11/13/19 11/13/19 02:25 02:25 02:25 WBC 6.3 RBC 3.89 Hgb 12.2 Hct 36.2 MCV 93 MCH 31.4 MCHC 33.7 RDW 14.1 H Plt Count 235 Seg Neutrophils % 63.0 Sodium 138.4 Potassium 3.8 Chloride 104 Carbon Dioxide 25 Anion Gap 9 BUN 5 L Creatinine 0.59 Est GFR ( Amer) > 60 Glucose 96 Calcium 9.3 Total Bilirubin 0.3 AST 20 Alkaline Phosphatase 62 Total Protein 7.5 Albumin 4.3 Urine Color Urine Appearance Urine pH Ur Specific [place] Urine Protein Urine Glucose (UA) Urine Ketones Urine Blood Urine Nitrite Ur Leukocyte Esterase Urine WBC (Auto) Urine RBC (Auto) Blood Type O POSITIVE Antibody Screen NEGATIVE 11/13/19 11/13/19 03:00 16:03 WBC 5.8 RBC 3.03 L Hgb 9.6 L D Hct 28.8 L MCV 95 MCH 31.6 MCHC 33.3 RDW 13.9 Plt Count 167 Seg Neutrophils % 47.6 Sodium Potassium Chloride Carbon Dioxide Anion Gap BUN Creatinine Est GFR ( Amer) Glucose Calcium Total Bilirubin AST Alkaline Phosphatase Total Protein Albumin Urine Color YELLOW Urine Appearance CLEAR Urine pH 7.0 Ur Specific [place] 1.016 Urine Protein NEGATIVE Urine Glucose (UA) NEGATIVE Urine Ketones NEGATIVE Urine Blood MODERATE H Urine Nitrite NEGATIVE Ur Leukocyte Esterase TRACE H Urine WBC (Auto) 2 Urine RBC (Auto) 13 Blood Type Antibody Screen Impressions: Obstetrics Ultrasound 11/13/19 03:18 IMPRESSION: Diffusely abnormal thickened, heterogeneous echotexture to the endometrium. No IUP. Similar findings were present previously copyright 2011 [employer]- All Rights Reserved Head CT 11/13/19 16:21 IMPRESSION: NORMAL BRAIN CT WITHOUT CONTRAST. EVIDENCE OF ACUTE STROKE: NO. Assessment & Plan - Diagnosis (1) Retained products of conception Is this a current diagnosis for this admission?: Yes (2) Vaginal bleeding Is this a current diagnosis for this admission?: Yes (3) Endometritis Is this a current diagnosis for this admission?: Yes - Time Time Spent with patient: 15-24 minutes Medications reviewed and adjusted accordingly: Yes Anticipated discharge: Home Anticipated DC Timeframe: within 24 hours - Plan Summary Plan Summary: Called to patients room because patient was out of bed for the first time since D&C and fell in the restroom. Reports hitting head on left side. Head vs toilet. She reports no weakness, vision changes, or other new sympotms. Had pain at time but not now. No n/v. Neuro exam done and no abnormal findings noted. No weakness in upper or lower extremities, smile symmetrical, tongue protrudes mid line, MARIANELA. She has no palpable lump, no abrasions or bruising. CT head ordered. Instructed patient to call out in future when getting up until she is more steady WHile I was ordering CT, she called out with blurring vision then called out again stating that her head would not stop moving
--- NOTE | 2019-11-14 08:37 | Discharge Summary ---
Discharge Summary (SDC) - Discharge Final Diagnosis: Retained products s/p Suciton D&C vaginal bleeding Fall post op, ct head negative Anemia, acute blood loss Anxiety /depression Date of Surgery: 11/13/19 Discharge Date: 11/14/19 Condition: Stable Treatment or Instructions: Follow up out patient in 2 wks with OB provider Follow up out patient with Psychiatry Continue Iron or vitamin daily Nothing in vagina and no intercourse until follow up with OB provider May shower. NO tub baths Prescriptions: Ferrous Sulfate [Feosol 325 mg Tablet] 325 mg PO DAILY #30 tab Ibuprofen [Ibu] 800 mg PO Q8 10 Days #30 tablet Respiratory Treatments at Home: Incentive Spirometer Discharge Activity: Activity As Tolerated, No Lifting Over 10 Pounds Home Care Assistance: None Needed Report the Following to Your Physician Immediately: Shortness of Breath, Vomiting, Increase in Pain, Fever over 101 Degrees, Swelling, Warmth, Increased Vaginal Bleed, Seizure, IV Site Infection Signs
[2019-11-14] MEDS: IBUPROFEN 800 MG TABLET PO SCH (10:27)
[2019-11-14] MEDS: DOXYCYCLINE HYCLATE 100 MG TABLET PO SCH (10:28)
[2019-11-14] MEDS: HYDROCODONE/ACETAMINOPHEN 5-325 MG TABLET PO PRN (11:00)
[2019-11-14 14:11] VITALS: BP 92/42
--- NOTE | 2019-11-14 14:34 | PSYCHOLOGICAL NOTE ---
Psych Note - Psych Note Date seen by psych provider: 11/14/19 Time seen by psych provider: 13:40 - 1400 Psych Note: Reason for Consult: Grief, possible suicidal ideation Patient is currently at [facility] for a Suciton D&C. Patient disclosed significant trauma history and intense grief in connection to her miscarriage. The patient reports this is not the first miscarriage she has experienced but this is the first time she had to go through this procedure. She engages appropriately with clinician in discussing the stages of grief. She reports that she no longer has any thoughts of wanting to harm herself. She states she just had dark thoughts "of not wanting to be here" after having the procedure; " it was a lot...not just physically not emotionally." She reports she has a history of passive suicidal ideation and confirms she would like to go to therapy. She reports discharge planning also came by and discussed ideas for providers. Behavioral health provided resource list of area providers. Patient confirms she would like to do therapy and declines assistance with medication management stating "medicine just covers up like a Band-Aid and does not address the actual emotion...I rather do therapy and stay away from medication." Patient is alert and orientated to person, place, time and circumstance. Patient mood overall is euthymic with congruent affect however clinician notes the longer evaluation took more pain the patient was clearly in. Patient at no time was inappropriate or irritable with clinician. Patient denies current suicidal and homicidal ideation. Delusions are absent and behaviors congruent with an intact reality based presentation i.e. organized and linear thought process. Eye contact was well maintained. Conversational speech is within normal rate, tone and prosody. Intellectual abilities appear to be within the average range. Attention and concentration are currently good. Insight, judgment, impulse control are good. Clinical Presentation: grief patient reports being in pain from procedure good insight good support network proactive in obtaining services trauma history impression/plan: Patient is cleared from acute psychiatric services. Patient identified wanting to obtain therapy. Patient discloses passive suicidal ideation i.e. no plans means or intent in the moment when dealing with both physical and emotional stress from her procedure. Patient does have a history of suicidal ideation. She denies current. Patient has significant trauma history and grew up in foster care. Patient demonstrated strong skills with insight and judgment in regards to being proactive in obtaining services and understanding the processes of grief. Patient was provided local resource list of area providers which includes mobile crisis contact information. Dr. Avendano was consulted to care management this patient; tending physicians in agreement with recommendations and disposition.
--- NOTE | 2019-11-17 10:53 | PDOC DISCHARGE SUMMARY ---
Impression - Admit/DC Date/PCP Admission Date/Primary Care Provider: 11/13/19 22:58 Discharge Date: 11/14/19 - Discharge Diagnosis (1) Retained products of conception Is this a current diagnosis for this admission?: Yes (2) Vaginal bleeding Is this a current diagnosis for this admission?: Yes (3) Endometritis Is this a current diagnosis for this admission?: Yes (4) Fall Is this a current diagnosis for this admission?: Yes - Assessment Summary: 24 yo s/p suction dilation and currettage for retained products of conception. SHe was stable post -op but expressed concerns for worsening depression with consideration of self harm. Stat psych consult ordered and kept in house for management of her mental status After evalation and treatment by psychiatry she will be discharged with outpatient f/u. - Additional Information Resuscitation Status: Full Code Discharge Diet: As Tolerated Discharge Activity: Activity As Tolerated, No Lifting Over 10 Pounds Referrals: JAMES DISLA MD [ACTIVE PROVISIONAL STAFF] - 12/03/19 1:00 pm (CALL THE OFFICE FOR QUESTIONS OR CONCERNS.) Prescriptions: Ferrous Sulfate [Feosol 325 mg Tablet] 325 mg PO DAILY #30 tab Ibuprofen [Ibu] 800 mg PO Q8 10 Days #30 tablet Home Medications: Vit,Calc76/Iron/Folic [Prenatabs Rx Tablet] 1 tab PO DAILY 10/06/18 Ferrous Sulfate [Feosol 325 mg Tablet] 325 mg PO DAILY #30 tab 11/14/19 Ferrous Sulfate [Feosol 325 mg Tablet] 325 mg PO QHS tablet 11/14/19 Ibuprofen [Ibu] 800 mg PO Q8 10 Days #30 tablet 11/14/19 Ibuprofen [Motrin 800 mg Tablet] 800 mg PO Q8 tablet 11/14/19 History of Present Illiness History of Present Illness: DANNY [place]KE is a 24 year old female Physical Exam - Physical Exam Vital Signs: Temp Pulse Resp BP Pulse Ox 97.9 F 53 L 16 92/42 L 100 11/14/19 14:09 11/14/19 14:09 11/14/19 14:09 11/14/19 14:09 11/14/19 14:09 Results Laboratory Results: WBC 5.8 10^3/uL (4.0-10.5) 11/13/19 16:03 RBC 3.03 10^6/uL (3.72-5.28) L 11/13/19 16:03 Hgb 9.6 g/dL (12.0-15.5) L D 11/13/19 16:03 Hct 28.8 % (36.0-47.0) L 11/13/19 16:03 MCV 95 fl (80-97) 11/13/19 16:03 MCH 31.6 pg (27.0-33.4) 11/13/19 16:03 MCHC 33.3 g/dL (32.0-36.0) 11/13/19 16:03 RDW 13.9 % (11.5-14.0) 11/13/19 16:03 Plt Count 167 10^3/uL (150-450) 11/13/19 16:03 Lymph % (Auto) 41.8 % (13-45) 11/13/19 16:03 Moore % (Auto) 8.4 % (3-13) 11/13/19 16:03 Eos % (Auto) 1.8 % (0-6) 11/13/19 16:03 Baso % (Auto) 0.4 % (0-2) 11/13/19 16:03 Absolute Neuts (auto) 2.7 10^3/uL (1.7-8.2) 11/13/19 16:03 Absolute Lymphs (auto) 2.4 10^3/uL (0.5-4.7) 11/13/19 16:03 Absolute Monos (auto) 0.5 10^3/uL (0.1-1.4) 11/13/19 16:03 Absolute Eos (auto) 0.1 10^3/uL (0.0-0.6) 11/13/19 16:03 Absolute Basos (auto) 0.0 10^3/uL (0.0-0.2) 11/13/19 16:03 Seg Neutrophils % 47.6 % (42-78) 11/13/19 16:03 PT 14.4 SEC (11.4-15.4) 11/13/19 02:25 INR 1.10 11/13/19 02:25 APTT 33.0 SEC (23.5-35.8) 11/13/19 02:25 Sodium 138.4 mmol/L (137-145) 11/13/19 02:25 Potassium 3.8 mmol/L (3.6-5.0) 11/13/19 02:25 Chloride 104 mmol/L (98-107) 11/13/19 02:25 Carbon Dioxide 25 mmol/L (22-30) 11/13/19 02:25 Anion Gap 9 (5-19) 11/13/19 02:25 BUN 5 mg/dL (7-20) L 11/13/19 02:25 Creatinine 0.59 mg/dL (0.52-1.25) 11/13/19 02:25 Est GFR ( Amer) > 60 (>60) 11/13/19 02:25 Est GFR (MDRD) Non-Af > 60 (>60) 11/13/19 02:25 Glucose 96 mg/dL (75-110) 11/13/19 02:25 POC Glucose 94 mg/dL (70-110) 11/13/19 15:44 Calcium 9.3 mg/dL (8.4-10.2) 11/13/19 02:25 Total Bilirubin 0.3 mg/dL (0.2-1.3) 11/13/19 02:25 Direct Bilirubin 0.0 mg/dL (0.0-0.4) 11/13/19 02:25 Neonat Total Bilirubin Not Reportable 11/13/19 02:25 Neonat Direct Bilirubin Not Reportable 11/13/19 02:25 Neonat Indirect Bili Not Reportable 11/13/19 02:25 AST 20 U/L (14-36) 11/13/19 02:25 ALT 15 U/L (<35) 11/13/19 02:25 Alkaline Phosphatase 62 U/L (38-126) 11/13/19 02:25 Total Protein 7.5 g/dL (6.3-8.2) 11/13/19 02:25 Albumin 4.3 g/dL (3.5-5.0) 11/13/19 02:25 Beta HCG, Quant 9135.60 mIU/mL (0.0-6.15) H 11/13/19 02:25 Total Beta HCG POSITIVE (NEGATIVE) 11/13/19 02:25 Urine Color YELLOW 11/13/19 03:00 Urine Appearance CLEAR 11/13/19 03:00 Urine pH 7.0 (5.0-9.0) 11/13/19 03:00 Ur Specific [place] 1.016 11/13/19 03:00 Urine Protein NEGATIVE mg/dL (NEGATIVE) 11/13/19 03:00 Urine Glucose (UA) NEGATIVE mg/dL (NEGATIVE) 11/13/19 03:00 Urine Ketones NEGATIVE mg/dL (NEGATIVE) 11/13/19 03:00 Urine Blood MODERATE (NEGATIVE) H 11/13/19 03:00 Urine Nitrite NEGATIVE (NEGATIVE) 11/13/19 03:00 Urine Bilirubin NEGATIVE (NEGATIVE) 11/13/19 03:00 Urine Urobilinogen 2.0 mg/dL (<2.0) H 11/13/19 03:00 Ur Leukocyte Esterase TRACE (NEGATIVE) H 11/13/19 03:00 Urine WBC (Auto) 2 /HPF 11/13/19 03:00 Urine RBC (Auto) 13 /HPF 11/13/19 03:00 Urine Bacteria (Auto) TRACE /HPF 11/13/19 03:00 Squamous Epi Cells Auto 2 /HPF 11/13/19 03:00 Urine Mucus (Auto) MANY /LPF 11/13/19 03:00 Urine Ascorbic Acid NEGATIVE (NEGATIVE) 11/13/19 03:00 SARS-CoV-2 (PCR) NEGATIVE (NEGATIVE) 11/13/19 06:03 Blood Type O POSITIVE 11/13/19 02:25 Antibody Screen NEGATIVE 11/13/19 02:25 Impressions: Obstetrics Ultrasound 11/13/19 03:18 IMPRESSION: Diffusely abnormal thickened, heterogeneous echotexture to the endometrium. No IUP. Similar findings were present previously copyright 2011 [employer]- All Rights Reserved Head CT 11/13/19 16:21 IMPRESSION: NORMAL BRAIN CT WITHOUT CONTRAST. EVIDENCE OF ACUTE STROKE: NO. Stroke Is this a Stroke Patient?: No Acute Heart Failure - Is this a Heart Failure Patient?: No
== END 2019-11-14 15:02 | disposition home or self-care (01) | DRG 770 ==
LOC: ER 01:45 → EH 07:32 → UNDOADMIN 07:32 → ASU 1 07:39 → ER 09:27 → 2N 14:30 → ER 22:57 → 2N 22:58
PROVIDERS: ADMIT Obstetrics & Gynecology; ATTEND Obstetrics & Gynecology
PROC: 10D17ZZ Extraction of Products of Conception, Retained, Via Natural or Artificial Opening (ICD-10-PCS; principal; 2019-11-13 10:00)
DX: O03.6 Delayed or excessive hemorrhage following complete or unspecified spontaneous abortion (principal); D62 Acute posthemorrhagic anemia; N93.8 Other specified abnormal uterine and vaginal bleeding; O99.345 Other mental disorders complicating the puerperium; F41.8 Other specified anxiety disorders; Z20.828 Contact with and (suspected) exposure to other viral communicable diseases
CPT/HCPCS: 1965; 36415; 70450; 76817; 80053; 81001; 82962; 84702; 85025; 85610; 85730; 86850; 86900; 86901; 87635; 88305; 96361; 96374; 99140; 99285; C9803; J0131; J0690; J1170; J1885; J2250; J2270; J2405; J2704; J3010; J3490; J7030; S0119

== ENCOUNTER 2019-12-05 22:28 | Emergency (ER) | payer MEDICAID ==
[2019-12-05] MEDS: NORMAL SALINE 1000 ML 1,000 ML IV PRN ×2 (23:53→23:55)
[2019-12-05 23:56] LABS: ABSOLUTE EOSINOPHILS # (AUTO) 0.1 10^3/uL (0.0-0.6); ABSOLUTE LYMPHOCYTES (AUTO) 2.3 10^3/uL (0.5-4.7); ABSOLUTE MONOCYTES (AUTO) 0.6 10^3/uL (0.1-1.4); ABSOLUTE NEUT (AUTO) 3.8 10^3/uL (1.7-8.2); BASOPHILS % (AUTO) 0.5 % (0-2); EOSINOPHILS % (AUTO) 1.8 % (0-6); HEMATOCRIT 30.1 % (36.0-47.0); HEMOGLOBIN 9.9 g/dL (12.0-15.5); LYMPHOCYTES % (AUTO) 33.1 % (13-45); MEAN CORPUSCULAR HEMOGLOBIN 30.3 pg (27.0-33.4); MEAN CORPUSCULAR HGB CONC 33.1 g/dL (32.0-36.0); MEAN CORPUSCULAR VOLUME 92 fl (80-97); MONOCYTES % (AUTO) 9.3 % (3-13); PLATELET COUNT 164 10^3/uL (150-450); RED BLOOD COUNT 3.28 10^6/uL (3.72-5.28); RED CELL DISTRIBUTION WIDTH 14.2 % (11.5-14.0); SEGMENTED NEUTROPHILS % (AUTO) 55.3 % (42-78); TOTAL CELLS COUNTED % (AUTO) 100 %
--- NOTE | 2019-12-05 23:56 | ER Document Report ---
ED General - General Chief Complaint: Syncope Stated Complaint: POSSIBLE SYNCOPE Time Seen by Provider: 12/05/19 22:49 TRAVEL OUTSIDE OF THE [place] IN LAST 30 DAYS: No - HPI Notes: Patient is a 23-year-old female who presents to the emergency department for evaluation after a syncopal episode. She states she had a normal day. She was in the shower, after putting her daughter to bed. She started to feel dizzy. The next thing she knew she was on the floor. She states she was out long enough for the water to have gone cold. She admits it was a warm shower. She is had some nausea now, but no emesis. She has pain in her head and her neck. She rates it a 3 out of 5, states is constant. Is made worsened by light, nothing seems to make it better. She ate and drank normally today. Had breakfast and lunch. Played outside, but no activity out of normal. She does admit to a D&C approximately 3 weeks ago. She states that she had light spotting daily until 48 hours ago, but it entirely stopped. She has not been sexually active since this procedure. - Related Data Allergies/Adverse Reactions: mushroom Allergy (Verified 12/01/18 05:48) Anaphylaxis tree nut Allergy (Verified 12/01/18 05:48) diphenhydramine [From Benadryl] Adverse Reaction (Verified 12/01/18 05:48) PT STATES MILD ITCHING peach Adverse Reaction (Verified 12/01/18 05:48) seafood Allergy (Uncoded 12/01/18 05:48) Anaphylaxis Past Medical History - General Information source: Patient - Social History Smoking Status: Never Smoker Family History: Reviewed & Not Pertinent Pulmonary Medical History: Reports: Hx Asthma Renal/ Medical History: Psychiatric Medical History: Reports: Hx Anxiety, Hx Depression - anxiety Past Surgical History: Reports: Hx Dilation and Curettage, Hx Oral Surgery - wisdom, Hx Orthopedic Surgery - bilateral feet. - Immunizations Hx Diphtheria, Pertussis, Tetanus Vaccination: Yes Review of Systems - Review of Systems Constitutional: Weakness EENT: No symptoms reported Cardiovascular: See HPI Respiratory: No symptoms reported Gastrointestinal: See HPI Genitourinary: No symptoms reported Female Genitourinary: See HPI Musculoskeletal: No symptoms reported Skin: No symptoms reported Neurological/Psychological: No symptoms reported Physical Exam - Vital signs Vitals: Resp Pulse Ox 15 100 12/05/19 22:31 12/05/19 22:31 - Notes Notes: Vital signs reviewed, please refer to chart. Head is normocephalic. Hematoma noted on the frontoparietal scalp on the left, with significant tenderness, but no skull deformity is palpated. Pupils equal round, reactive to light. Neck is supple without meningismus. Heart is regular rate and rhythm. Lungs are clear to auscultation bilaterally. Abdomen is soft, nontender, normoactive bowel sounds throughout. Extremities without cyanosis, clubbing. Posterior calves are nontender. Peripheral pulses are equal. Skin is warm and dry. Patient is awake, alert, oriented to person and place, but disoriented to time. She is unable to tell me the month, but does recognize his 2020. She is able to tell me all of the activities her day leading up to the syncopal episode.. Cranial nerves II - XII are grossly intact without focal neurological deficits. Strength is plus 5 out of 5 bilateral upper and lower extremities. Sensation is intact. Reflexes symmetrical. Intact [id number], rapid alternating movements, [id number]. Course - Re-evaluation Re-evalutation: 12/05/19 23:59 Patient presents to the emergency department for evaluation. She was placed on a monitor technician and laboratory investigations were obtained. She was found to be hypotensive. I ordered 2 L of normal saline. Despite her mild hypotension, her mean arterial pressures have been within normal limits. Patient did have a significant head trauma, is still slightly confused, so CT scan of the head and neck was ordered. She is currently stable, we will continue to monitor. 12/06/19 02:42 Patient is feeling improved. She is not even received the entire 2 L bolus and she has been normotensive for some time. Her imaging and blood work are unremarkable. EKG failed to show any acute concerning signs. I do not have a clear etiology for this patient symptoms, but she is not , I am reassured by my findings. She is to follow-up closely with her primary care provider. She is told to rest, stay well-hydrated. She is to return to the ED with worsening or new concerning symptoms of any sort. - Vital Signs Vital signs: Temp Pulse Resp BP Pulse Ox 17 94/56 L 100 12/06/19 01:01 12/06/19 01:00 12/06/19 01:01 - Laboratory Result Diagrams: 12/05/19 23:44 12/05/19 23:44 Laboratory results interpreted by me: 12/05/19 12/05/19 23:44 23:44 RBC 3.28 L Hgb 9.9 L Hct 30.1 L RDW 14.2 H Chloride 108 H Calcium 8.0 L Total Protein 5.9 L Albumin 3.3 L - Diagnostic Test Radiology reviewed: Reports reviewed Radiology results interpreted by me: 12/06/19 02:[address] 12/05/19 23:54 IMPRESSION: 1. No acute intracranial abnormalities. TECHNIQUE: Cervical spine CT was performed without contrast. Multiplanar reformatted images were provided. This exam was performed according to our departmental dose optimization program which includes use of automated exposure control, adjustment of the mA and/or kV according to patient size and/or use of iterative reconstruction technique. COMPARISON: None. FINDINGS: There is normal alignment of the cervical spine without fracture or subluxation. The facets are normal in alignment bilaterally. The posterior elements including the spinous processes are intact. Straightening of the cervical spine which may be secondary to positioning for the examination. Morphology and attenuation of the vertebral bodies and intervertebral disk spaces is within normal limits. The pre-and paravertebral soft tissues are within normal limits. IMPRESSION: 1. Straightening of the cervical spine which may be secondary to positioning for the examination versus spasm. 2. No fracture or acute subluxation. Head CT 12/05/19 23:54 IMPRESSION: 1. No acute intracranial abnormalities. TECHNIQUE: Cervical spine CT was performed without contrast. Multiplanar reformatted images were provided. This exam was performed according to our departmental dose optimization program which includes use of automated exposure control, adjustment of the mA and/or kV according to patient size and/or use of iterative reconstruction technique. COMPARISON: None. FINDINGS: There is normal alignment of the cervical spine without fracture or subluxation. The facets are normal in alignment bilaterally. The posterior elements including the spinous processes are intact. Straightening of the cervical spine which may be secondary to positioning for the examination. Morphology and attenuation of the vertebral bodies and intervertebral disk spaces is within normal limits. The pre-and paravertebral soft tissues are within normal limits. IMPRESSION: 1. Straightening of the cervical spine which may be secondary to positioning for the examination versus spasm. 2. No fracture or acute subluxation. - EKG Interpretation by Me Additional EKG results interpreted by me: 12/06/19 02:43 Sinus arrhythmia from the 50s to the 70s. Normal axis and intervals. No acute ST changes concerning for ischemia or infarction. Discharge - Discharge Clinical Impression: Syncope Qualifiers: Encounter type: initial encounter Closed head injury Qualifiers: Encounter type: initial encounter Qualified Code(s): S09.90XA - Unspecified injury of head, initial encounter Hypotension Qualifiers: Hypotension type: unspecified hypotension type Qualified Code(s): I95.9 - Hypotension, unspecified Condition: Stable Disposition: HOME, SELF-CARE Instructions: Syncopal Episode ([facility]), Hypotension ([facility]) Additional Instructions: Rest, stay well-hydrated. Follow-up with your primary care provider this week. Stand up slowly. Return to the emergency department with worsening or new concerning symptoms of any sort.
[2019-12-06 00:18] LABS: ALBUMIN 3.3 g/dL (3.5-5.0); ALKALINE PHOSPHATASE 53 U/L (38-126); ASPARTATE AMINO TRANSFERASE 17 U/L (14-36); BILIRUBIN,DIRECT 0.2 mg/dL (0.0-0.4); BILIRUBIN,TOTAL 0.3 mg/dL (0.2-1.3); BLOOD UREA NITROGEN 8 mg/dL (7-20); GLUCOSE 87 mg/dL (75-110); POTASSIUM 3.9 mmol/L (3.6-5.0); TOTAL PROTEIN 5.9 g/dL (6.3-8.2)
[2019-12-06 00:23] LABS: ANION GAP 5 (5-19); CARBON DIOXIDE 26 mmol/L (22-30); CHLORIDE 108 mmol/L (98-107)
--- NOTE | 2019-12-06 01:41 | RADIOLOGY REPORT (SQ) ---
EXAM DESCRIPTION: CT HEAD WITHOUT IV CONTRAST, CT CERVICAL SPINE WITHOUT IV CONTRAST COMPLETED DATE/TME: 12/05/2019 23:54 CLINICAL INDICATION: 24-year-old female with syncope and head injury. COMPARISON: 11/13/2019. TECHNIQUE: CT brain without contrast. This exam was performed according to our departmental dose optimization program which includes use of automated exposure control, adjustment of the mA and/or kV according to patient size and/or use of iterative reconstruction technique. FINDINGS: The ventricles, sulci, and cisterns are symmetric and unremarkable. The kennedy-white matter differentiation is preserved. There is no mass effect, midline shift, intra- or extra-axial fluid collection/acute hemorrhage. The osseous structures are unremarkable. The paranasal sinuses and mastoid air cells are clear. IMPRESSION: 1. No acute intracranial abnormalities. TECHNIQUE: Cervical spine CT was performed without contrast. Multiplanar reformatted images were provided. This exam was performed according to our departmental dose optimization program which includes use of automated exposure control, adjustment of the mA and/or kV according to patient size and/or use of iterative reconstruction technique. COMPARISON: None. FINDINGS: There is normal alignment of the cervical spine without fracture or subluxation. The facets are normal in alignment bilaterally. The posterior elements including the spinous processes are intact. Straightening of the cervical spine which may be secondary to positioning for the examination. Morphology and attenuation of the vertebral bodies and intervertebral disk spaces is within normal limits. The pre-and paravertebral soft tissues are within normal limits. IMPRESSION: 1. Straightening of the cervical spine which may be secondary to positioning for the examination versus spasm. 2. No fracture or acute subluxation.
[2019-12-06 01:52] LABS: APPEARANCE,URINE CLEAR; BILIRUBIN,URINE NEGATIVE (NEGATIVE); COLOR,URINE STRAW; GLUCOSE, URINE NEGATIVE (NEGATIVE); KETONES,URINE NEGATIVE (NEGATIVE); LEUKOCYTE ESTERASE,URINE NEGATIVE (NEGATIVE); NITRITE,URINE NEGATIVE (NEGATIVE); PROTEIN,URINE NEGATIVE (NEGATIVE); URINE SPECIFIC GRAVITY 1.006; UROBILINOGEN,URINE NEGATIVE mg/dL (<2.0)
[2019-12-06 02:15] LABS: ADD MANUAL MICROSCOPIC YES
[2019-12-06 02:21] LABS: WBC,URINE RARE /HPF
[2019-12-06 03:18] VITALS: BP 113/63
--- NOTE | 2019-12-06 10:13 | EKG REPORT ---
SEVERITY:- OTHERWISE NORMAL ECG - SINUS ARRHYTHMIA, RATE 47-75 : Confirmed by: Rae Ba MD 06-Dec-2019 10:12:44
== END 2019-12-06 03:24 | disposition home or self-care (01) ==
LOC: ER 22:28
DX: R55 Syncope and collapse (principal); S00.03XA Contusion of scalp, initial encounter; W18.2XXA Fall in (into) shower or empty bathtub, initial encounter; Y93.E1 Activity, personal bathing and showering; I95.9 Hypotension, unspecified; R41.0 Disorientation, unspecified; R53.1 Weakness; J45.909 Unspecified asthma, uncomplicated; Z98.890 Other specified postprocedural states; Z87.892 Personal history of anaphylaxis; Z91.018 Allergy to other foods; Z91.013 Allergy to seafood
CPT/HCPCS: 93005; 99285; 96360; 36415; 84703; 85025; 80053; 81001; 70450; 72125; 93010; J7030